=== PATIENT | female | born 1940 | race Caucasian/White ===

== ENCOUNTER 2020-03-24 15:38 | Inpatient (IN) ==
[2020-03-24] MEDS ORDERED: MoRPHine SULFATE 2 MG/ML CARP IV PRN (15:48)
[2020-03-24] MEDS ORDERED: MoRPHine SULFATE 4 MG/ML 1 ML CARP\\VIAL IV PRN ×2 (15:48→22:05)
--- NOTE | 2020-03-24 15:51 | Emergency Department Note ---
Impression & Plan Hip fracture, left, Fall, Hip pain ED Provider Note NAME: Lamin HAINES AGE: 80 SEX: F : 1940 ARRIVES VIA: Ambulance INFORMANT: Patient ED PROVIDER(S): Carlos Dietrich DO CHIEF COMPLAINT: Fall HPI: Patient is an 80-year-old female who presents ER following a mechanical fall. She was taking pictures walking backwards and slipped and fell onto her left hip. She did hit her head. She complains of no pain at this point. Pain is only present with movement of her left hip. Admits to severe pain with movement sharp stabbing in that left hip. Denies any headache or neck pain. No chest pain, cough or runny nose. No belly pain, nausea, vomiting or diarrhea. No dysuria urgency or frequency. No tingling or numbness in the extremity ROS: See above HPI for pertinent positives & negatives. A total of 10 systems reviewed and were otherwise negative. PAST MEDICAL HISTORY:See Below PAST SURGICAL HISTORY:See Below FAMILY HISTORY:See Below SOCIAL HISTORY:See Below HOME MEDICATIONS:See Below ALLERGIES:See Below VITALS:See Below PHYSICAL EXAMINATION: GENERAL: Sitting up in bed, alert, well appearing, well nourished, no distress, non-toxic HEAD: NC/AT EYE EXAM: normal conjunctiva. OROPHARYNX: mask in place NECK: supple, no nuchal rigidity, no adenopathy, non-tender LUNGS: Clear to auscultation. Normal chest wall mechanics HEART: no murmurs, S1 normal and S2 normal ABDOMEN: abdomen soft, non-tender, normo-active bowel sounds, no masses, no rebound or guarding. BACK: Back is symmetrical on inspection and there is no deformity, no midline tenderness, no CVA tenderness. SKIN: no rashes and no bruising UPPER EXTREMITIES: upper extremities are grossly normal. LOWER EXTREMITIES: No tenderness on palpation of the entire right lower extremity. Left lower extremity DP and PT 2 out of 4. Significant pain on palpation of left hip. No tenderness throughout mid femur tracking to the knee tib-fib down to the ankle or the foot. NEURO EXAM: Normal sensorium, cranial nerves II-XII grossly intact, normal speech, no gross weakness of arms, no gross weakness of legs. MEDICAL DECISION MAKING: Patient is an 80-year-old female who presents the ER following mechanical fall onto her left hip. IV was status post orders obtained. Labs show mild leukocytosis 13,000. No significant anemia. INR unremarkable. BMP with mild hypokalemia natremia. UA was unremarkable. Covid was negative. X-rays show left hip fracture. [facility] as she has follow-up with them before.. Discussed the hospitalist for further evaluation. Patient should be n.p.o. after midnight. Patient did become hypoxic after IV narcotics. Triage Nursing notes reviewed. Prior medical records reviewed Vital Signs: reviewed and remarkable for no significant abnormalities Differential diagnosis: ORTHOPEDIC INSTRUCTIONS: Fracture, subluxation, dislocation, contusion, ligamentous injury, neurovascular, compartment syndrome, rhabdomyolysis, as well as other pathologies. ER treatment provided: See below Diagnostics interpreted by me: ECG: Sinus rhythm rate of 78 Normal axis No PVCs QTC 456 Cardiac Monitoring: An order was placed for continuous cardiac monitoring. The monitor shows a rate of 84 with sinus rhythm. Laboratory studies: As stated above and show below. Imaging studies: X-ray showed left hip fracture CT head and cervical spine were negative Consultation(s): none ED COURSE: Procedures: none Critical Care: None Past Med/Surg History Social History Smoking Status: Former smoker Feels Safe at Home: Yes Allergies Allergies Allergy/AdvReac Type Severity Reaction Status Date / Time No Known Allergies Allergy Verified 05/20/02 19:40 N Allergy Unknown Uncoded 05/20/02 21:14 Home Meds Home Medications Medication Instructions Recorded Confirmed escitalopram oxalate 10 mg PO HS 03/24/20 03/24/20 timolol maleate 1 drp OPR BID 03/24/20 03/24/20 Previous Rx's Medication Instructions Recorded azelastine 137 mcg (0.1 %) nasal 1 spray INTRANASAL DAILY #90 ml 12/28/19 spray aerosol Results & Data (ED) Vital Signs Vital Signs - 24 hr 03/24/20 15:50 03/24/20 17:42 03/24/20 17:43 Temperature 36.8 C Temperature Source Oral Pulse Rate 78 Pulse Rate [Right Finger] 86 Pulse Rhythm [Right Finger] Respiratory Rate 20 17 Respiratory Effort / Characteristics Non-Labored Non-Labored Respiratory Depth Normal Normal Respiratory Pattern Blood Pressure 175/114 H Blood Pressure [Right Arm] 133/80 Blood Pressure Mean 134 Blood Pressure Mean [Right Arm] 97 Blood Pressure Position [Right Arm] Pulse Oximetry 96 89 L 90 Oxygen Delivery Method Room Air Room Air Nasal Cannula Oxygen Flow Rate 3 Sepsis Recent Fever Within 48 Hours No Sepsis New/Unexplained Change in Mental Status No Sepsis Action Taken by Nursing No Action Required Oxygen Flow Rate - Titration Pulse Oximetry Post Tiitration 03/24/20 19:30 03/24/20 19:59 03/24/20 21:09 Temperature Temperature Source Pulse Rate 85 Pulse Rate [Right Finger] 91 H Pulse Rhythm [Right Finger] Regular Respiratory Rate 18 18 Respiratory Effort / Characteristics Non-Labored Spontaneous Respiratory Depth Normal Respiratory Pattern Regular Blood Pressure 113/80 Blood Pressure [Right Arm] 141/100 H Blood Pressure Mean 91 Blood Pressure Mean [Right Arm] 113 Blood Pressure Position [Right Arm] Lying Pulse Oximetry 90 75 L 91 Oxygen Delivery Method Nasal Cannula Nasal Cannula Oxymask Oxymask Oxygen Flow Rate 3 3 10 Sepsis Recent Fever Within 48 Hours Sepsis New/Unexplained Change in Mental Status Sepsis Action Taken by Nursing Oxygen Flow Rate - Titration 10 Pulse Oximetry Post Tiitration 91 Laboratory Data Result diagrams: 03/24/20 15:52 03/24/20 15:52 Lab Results 03/24/20 03/24/20 03/24/20 Range/Units 15:52 15:52 15:52 WBC 13.16 H (4.8-10.8) K/uL RBC 4.09 L (4.2-5.4) M/uL Hgb 13.6 (12.0-16.0) g/dL Hct 40.8 (37-47) % MCV 99.8 (80-100) fL MCH 33.3 (25-34) pg MCHC 33.3 (32-36) g/dL RDW Std Deviation 48.8 H (36.4-46.3) fL RDW Coeff of Sienna 13.4 (11.5-14.5) % Plt Count 279 (130-400) K/uL MPV 10.7 H (7.4-10.4) fL Immature Gran % (Auto) 0.3 % Neut % (Auto) 67.3 % Lymph % (Auto) 21.7 % [place] % (Auto) 5.0 % Eos % (Auto) 5.3 % Baso % (Auto) 0.4 % Neut # (Auto) 8.86 H (1.4-6.5) K/uL Lymph # (Auto) 2.85 (1.2-3.4) K/uL [place] # (Auto) 0.66 H (0.11-0.59) K/uL Eos # (Auto) 0.70 H (0-0.5) K/uL Baso # (Auto) 0.05 (0-0.2) K/uL Immature Gran # (Auto) 0.04 H (0.00-0.02) K/uL PT 11.1 (9.0-12.0) Seconds INR 1.1 (0.9-1.1) APTT 26.0 (21.0-31.0) Seconds PTT Ratio 0.9 Sodium 135 L (136-145) mmol/L Potassium 3.8 (3.5-5.1) mmol/L Chloride 103 (98-107) mmol/L Carbon Dioxide 25 (21-32) mmol/L Anion Gap 7.0 (3-11) BUN 14 (7-18) mg/dl Creatinine 0.68 (0.6-1.2) mg/dl Est Cr Clr Drug Dosing 59.2 ml/min Est GFR ( Amer) 95.1 Est GFR (Non-Af Amer) 82.0 BUN/Creatinine Ratio 19.9 (10-20) Glucose 110 H (70-99) mg/dl Calcium 9.2 (8.5-10.1) mg/dl Urine Color Urine Appearance (Clear) Urine pH (4.5-7.5) Ur Specific [place] (1.000-1.030) Urine Protein (Negative) Urine Glucose (UA) (Negative) Urine Ketones (Negative) Urine Blood (Negative) Urine Nitrite (Negative) Urine Bilirubin (Negative) Urine Urobilinogen (Negative) Ur Leukocyte Esterase (Negative) Urine WBC (Auto) (0-5) /hpf Urine RBC (Auto) (0-4) /hpf U Hyaline Cast (Auto) (0-5) /lpf U Epithel Cells (Auto) (0-5) /lpf Urine Bacteria (Auto) (Negative) SARS-CoV-2 Ag (Rapid) (Negative) 03/24/20 03/24/20 Range/Units 17:27 19:46 WBC (4.8-10.8) K/uL RBC (4.2-5.4) M/uL Hgb (12.0-16.0) g/dL Hct (37-47) % MCV (80-100) fL MCH (25-34) pg MCHC (32-36) g/dL RDW Std Deviation (36.4-46.3) fL RDW Coeff of Sienna (11.5-14.5) % Plt Count (130-400) K/uL MPV (7.4-10.4) fL Immature Gran % (Auto) % Neut % (Auto) % Lymph % (Auto) % [place] % (Auto) % Eos % (Auto) % Baso % (Auto) % Neut # (Auto) (1.4-6.5) K/uL Lymph # (Auto) (1.2-3.4) K/uL [place] # (Auto) (0.11-0.59) K/uL Eos # (Auto) (0-0.5) K/uL Baso # (Auto) (0-0.2) K/uL Immature Gran # (Auto) (0.00-0.02) K/uL PT (9.0-12.0) Seconds INR (0.9-1.1) APTT (21.0-31.0) Seconds PTT Ratio Sodium (136-145) mmol/L Potassium (3.5-5.1) mmol/L Chloride (98-107) mmol/L Carbon Dioxide (21-32) mmol/L Anion Gap (3-11) BUN (7-18) mg/dl Creatinine (0.6-1.2) mg/dl Est Cr Clr Drug Dosing ml/min Est GFR ( Amer) Est GFR (Non-Af Amer) BUN/Creatinine Ratio (10-20) Glucose (70-99) mg/dl Calcium (8.5-10.1) mg/dl Urine Color Yellow Urine Appearance Clear (Clear) Urine pH 5.5 (4.5-7.5) Ur Specific [place] 1.021 (1.000-1.030) Urine Protein 1+ H (Negative) Urine Glucose (UA) Negative (Negative) Urine Ketones 3+ H (Negative) Urine Blood Negative (Negative) Urine Nitrite Negative (Negative) Urine Bilirubin Negative (Negative) Urine Urobilinogen Negative (Negative) Ur Leukocyte Esterase Negative (Negative) Urine WBC (Auto) 0 (0-5) /hpf Urine RBC (Auto) 0-4 (0-4) /hpf U Hyaline Cast (Auto) 1-5 (0-5) /lpf U Epithel Cells (Auto) 10-20 H (0-5) /lpf Urine Bacteria (Auto) Negative (Negative) SARS-CoV-2 Ag (Rapid) Negative (Negative) Administered Medications Morphine Sulfate (Morphine Sulfate 4 Mg/Ml 1 Ml Carp\Vial) 4 mg IV Q1H PRN PRN Reason: Severe Pain (Rating 7,8,9,10) Stop: 04/07/20 15:47 Last Admin: 03/24/20 17:03 Dose: 4 mg Documented by: [id number] Discharge Plan Visit Data Chief Complaint: Hip Pain Stated Complaint: FALL, L HIP PAIN ED Provider: Carlos Dietrich Discharge Problem: Hip fracture, left, Fall, Hip pain Discharge Instructions Interventions: ED Discharge Assessment Last Done: 03/24/20 21:06 Forms Stand Alone Forms: [facility] [employer] Prescriptions Prescriptions: No Action azelastine 137 mcg (0.1 %) aerosol,spray 1 spray intranasal DAILY Qty: 90 RF: 0 timolol maleate 0.5 % drops 1 drp OPR BID RF: 0 escitalopram oxalate 10 mg tablet 10 mg PO HS RF: 0 Referrals Referrals: Amalia Todd MD [Primary Care Provider] - Discharge Problem: Hip fracture, left Qualifiers: Encounter type: initial encounter Fracture type: closed Qualified Code(s): S72.002A - Fracture of unspecified part of neck of left femur, initial encounter for closed fracture Fall Qualifiers: Encounter type: initial encounter Qualified Code(s): W19.XXXA - Unspecified fall, initial encounter
[2020-03-24 15:59] LABS: Basophils # (auto) 0.05 K/uL (0-0.2); Basophils % (auto) 0.4 %; Eosinophils % (auto) 5.3 %; Hematocrit (blood only) 40.8 % (37-47); Hemoglobin 13.6 g/dL (12.0-16.0); Immature Granulocytes # (auto) 0.04 K/uL (0.00-0.02); Immature Granulocytes % (auto) 0.3 %; Lymphocytes # (auto) 2.85 K/uL (1.2-3.4); Lymphocytes % (auto) 21.7 %; Mean Corpuscular Hemoglobin 33.3 pg (25-34); Mean Corpuscular Hgb Conc 33.3 g/dL (32-36); Mean Corpuscular Volume 99.8 fL (80-100); Mean Platelet Volume 10.7 fL (7.4-10.4); Monocytes # (auto) 0.66 K/uL (0.11-0.59); Neutrophils # (auto) 8.86 K/uL (1.4-6.5); Neutrophils % (auto) 67.3 %; Platelet Count 279 K/uL (130-400); RDW Coefficient of Variation 13.4 % (11.5-14.5); RDW Standard Deviation 48.8 fL (36.4-46.3); Red Blood Count 4.09 M/uL (4.2-5.4); White Blood Count 13.16 K/uL (4.8-10.8)
[2020-03-24 16:16] LABS: INR 1.1 (0.9-1.1); Partial Thromboplastin Ratio 0.9; Prothrombin Time 11.1 Seconds (9.0-12.0)
--- NOTE | 2020-03-24 16:19 | XRay Report ---
XR hip LT 2V w pelvis CLINICAL HISTORY: Left hip pain status post trauma COMPARISON: None. DISCUSSION: There is a displaced subcapital left hip fracture. There is no dislocation. There is a gretchen mbar scoliosis. Degenerative changes are present within the spine. IMPRESSION: Acute subcapital left hip fracture. ACT 112: Negative or not required by law. Electronically signed by: Sam Valdes M.D. 03/24/2020 4:18 PM
[2020-03-24 16:31] LABS: BUN Creatinine Ratio 19.9 (10-20); Calcium 9.2 mg/dl (8.5-10.1); Creatinine Clr Calc Pharmacy 59.2 ml/min; Est GFR (African American) 95.1; Potassium 3.8 mmol/L (3.5-5.1)
--- NOTE | 2020-03-24 16:35 | XRay Report ---
XR chest 1V portable CLINICAL HISTORY: Hip fracture. Preoperative chest COMPARISON STUDY: No previous studies for comparison. FINDINGS: The heart is mildly enlarged. There is mild elevation of interstitium. This is age indeterm inate. This could represent mild pulmonary vascular congestion, chronic interstitial lung disease, or interstitial inflammatory process. Clinical and radiographic follow-up is recommended. There are no significant pleural effusions. No pneumothorax is visualized on this supine study.[ IMPRESSION: 1. Mild age indeterminate interstitial thickening. ACT 112: Negative or not required by law. Electronically signed by: Sam Valdes M.D. 03/24/2020 4:34 PM
--- NOTE | 2020-03-24 17:29 | CT Scan Report ---
CT head/brain wo con CLINICAL HISTORY: Head pain status post trauma COMPARISON STUDY: No previous studies for comparison. TECHNIQUE: Axial CT of the brain is performed from the vertex to the skull base. IV contrast was not administered for this examination. A dose lowering technique was utilized adhering to the principles of ALARA. CT DOSE: FINDINGS: No intra or extra-axial mass lesions are visualized. There is no CT evidence of acute cortical infarc tion. There is no evidence of midline shift. There is no acute hemorrhage. No calvarial fractures ar e visualized. There are patchy white matter hypodensities likely on a small vessel basis. There is no evidence of pathologic ventricular dilatation. There is left ethmoid sinus mucosal thickening. IMPRESSION: No acute intracranial findings ACT 112: Negative or not required by law. Electronically signed by: Sam Valdes M.D. 03/24/2020 5:28 PM
--- NOTE | 2020-03-24 17:31 | CT Scan Report ---
CT OF THE CERVICAL SPINE CLINICAL HISTORY: Neck pain status post trauma COMPARISON STUDY: No previous studies for comparison. CT DOSE: 936.18 mGy.cm TECHNIQUE: CT scan of the cervical spine was performed from the skull base to the thoracic inlet. Tequila ges are reviewed in the axial, sagittal, and coronal planes. IV contrast was not administered for thi s examination. A dose lowering technique was utilized adhering to the principles of ALARA. FINDINGS: The visualized portions of the lung apices reveal no evidence of pneumothorax. There is mild nonspeci fic left piriform sinus asymmetry. There is mild apical septal edema The prevertebral soft tissues are normal. No fractures or subluxations are visualized. There are multilevel degenerative changes IMPRESSION: No evidence of acute fracture or traumatic subluxation. ACT 112: Negative or not required by law. Electronically signed by: Sam Valdes M.D. 03/24/2020 5:30 PM
--- NOTE | 2020-03-24 18:53 | History & Physical Report ---
Date of Service March 24, 2020 Assessment & Plan (1) Hip fracture, left: Patient 80-year-old female with a past medical history of glaucoma, anxiety/depression, allergic rhinitis who presents today for evaluation of hip pain status post mechanical fall. #Acute subcapital left hip fracture secondary to mechanical fall in the setting of a patient with poor balance Patient with HPI as described above, presenting status post mechanical fall which imaging has demonstrated resulted in acute subcapital left hip fracture. The patient reports a history of having poor balance, this is not neurologically mediated, just is occurred with age. The patient will be admitted for orthopedic consultation, pain control, and further management of her fracture. -Consult orthopedics -Pain control with morphine -PT OT consulted -N.p.o. after midnight -Neurovascular checks left lower extremity -Consulted case management for discharge planning #Hypoxia On presentation the emergency department the patient was hypoxic to the low 90s/upper 80s requiring oxygen to maintain saturations of 92%. This is new for her, she does not use oxygen at home, she has no history of using oxygen, she reports being able to walk on a treadmill and walk around the house without significant issues. I suspect that her desaturations likely secondary to narcotic medication given for analgesia. For now monitor while hospitalized and provide as needed O2 -Monitor for improvement -As needed O2 -Trend daily CBC #Glaucoma Well-controlled continue timolol #Depression Well-controlled continue escitalopram FENa: Normal diet, n.p.o. after midnight Code Status: Full code DVT PPX: Contraindicated as the patient will likely require surgery PT/OT: Ordered Dispo: Emmanuel Kelley MD PGY 2, FCM This chart was completed utilizing [employer] voice recognition software. Grammatical errors, random word insertions, pronoun errors, and in complete sentences are an occasional consequence of the system. Any questions or concerns about the content, text, or information contained within the body of this dictation should be addressed directly to the physician for clarification. (2) Hypoxia: (3) Glaucoma: (4) Depression: (5) Fall: (6) Poor balance: History of Present Illness Patient 80-year-old female with a past medical history of glaucoma, anxiety/depression, allergic rhinitis who presents today for evaluation of hip pain status post mechanical fall. Patient reports being in her usual state of health prior to the injury, she denies any constitutional symptoms including fever, chills, nausea, vomiting, diarrhea, chest pressure, chest pain, shortness of breath, difficulty urinating, difficulty having bowel movements. She had gone outside to take pictures of the snow and show her children how she had been able to park the car in the garage. While lining up the picture she stepped backwards and fell hitting her left hip and her head. She screamed out for her who did not hear her, she was able to reach for her cell phone and called EMS. On presentation to the emergency department routine laboratories were obtained, CBC demonstrating a white count of 13.16 with a neutrophil predominance, INR within normal limits, Chem-7 demonstrating a sodium of 135 and a glucose of 110 otherwise within normal limits, rapid Covid test was negative, urine pending.Cervical spine CT was normal with the exception of degenerative changes, head CT was negative with the exception of chronic degenerative changes, chest x-ray demonstrated mild age indeterminate interstitial thickening. Pelvis x-ray demonstrated acute subcapital left hip fracture. The primary team was contacted for admission secondary to hip fracture, during my interview with the patient she related in HPI as described above. All questions were answered, no acute concerns. Primary Care Provider: Amalia Todd MD Allergies Allergy/AdvReac Type Severity Reaction Status Date / Time No Known Allergies Allergy Verified 05/20/02 19:40 N Allergy Unknown Uncoded 05/20/02 21:14 Home Medications Medication Instructions Recorded Confirmed Type azelastine 137 mcg (0.1 %) nasal 1 spray INTRANASAL DAILY #90 ml 12/28/19 03/24/20 Rx spray aerosol escitalopram oxalate 10 mg PO HS 03/24/20 03/24/20 History timolol maleate 1 drp OPR BID 03/24/20 03/24/20 History Past Med/Surg History Social History Smoking Status: Never smoker Hx Alcohol Use: Yes Alcohol type: wine Hx Substance Use: No Preferred Language: Estonian Communication Ability: Effective Order Detailer Required: No Beliefs That Will Affect Care: None Current Living Situation: Spouse Current Living Situation Comment: [facility] Other Information That Helps Us Care for You: No Feels Safe at Home: Yes Safety Concerns: Feels Safe At This Time Assistive Devices: Cane, Denture - Upper, Denture - Lower and Glasses Review of Systems Review of Systems: All systems reviewed & are unremarkable except as noted in HPI & below Physical Exam Physical Exam: General: In no acute distress HEENT: Normocephalic atraumatic Neck: Normal to visual inspection, trachea midline Cardiac: Regular rate and rhythm I did not appreciate significant murmurs rubs or gallops, normal S1, normal S2, negative pedal edema, negative calf tenderness Respiratory: Clear to auscultation bilaterally with symmetrical chest expansion no increased work of breathing I did not appreciate any significant wheezes, rales, rhonchi GI: Soft, nontender, nondistended, bowel sounds present in all 4 quadrants MSK: Moves all extremities, neurovascular sensation intact on the left side, endorses pain in her left quadriceps muscles Skin: Some bruising and ecchymosis around the injury site Neuro: Alert and oriented x4 Psych: Calm and cooperative Results & Data Results & Data ([facility]) Vital Signs (Past 12 Hours) Vital Signs Temp Pulse Pulse Resp BP BP Pulse Ox 03/24/20 17:43 90 03/24/20 17:42 86 17 133/80 89 L 03/24/20 15:50 36.8 C 78 20 175/114 H 96 Laboratory Results 03/24/20 03/24/20 03/24/20 Range/Units 17:27 15:52 15:52 WBC (4.8-10.8) K/uL RBC (4.2-5.4) M/uL Hgb (12.0-16.0) g/dL Hct (37-47) % MCV (80-100) fL MCH (25-34) pg MCHC (32-36) g/dL RDW Std Deviation (36.4-46.3) fL RDW Coeff of Sienna (11.5-14.5) % Plt Count (130-400) K/uL MPV (7.4-10.4) fL Immature Gran % (Auto) % Neut % (Auto) % Lymph % (Auto) % [place] % (Auto) % Eos % (Auto) % Baso % (Auto) % Neut # (Auto) (1.4-6.5) K/uL Lymph # (Auto) (1.2-3.4) K/uL [place] # (Auto) (0.11-0.59) K/uL Eos # (Auto) (0-0.5) K/uL Baso # (Auto) (0-0.2) K/uL Immature Gran # (Auto) (0.00-0.02) K/uL PT 11.1 (9.0-12.0) Seconds INR 1.1 (0.9-1.1) APTT 26.0 (21.0-31.0) Seconds PTT Ratio 0.9 Sodium 135 L (136-145) mmol/L Potassium 3.8 (3.5-5.1) mmol/L Chloride 103 (98-107) mmol/L Carbon Dioxide 25 (21-32) mmol/L Anion Gap 7.0 (3-11) BUN 14 (7-18) mg/dl Creatinine 0.68 (0.6-1.2) mg/dl Est Cr Clr Drug Dosing 59.2 ml/min Est GFR ( Amer) 95.1 Est GFR (Non-Af Amer) 82.0 BUN/Creatinine Ratio 19.9 (10-20) Glucose 110 H (70-99) mg/dl Calcium 9.2 (8.5-10.1) mg/dl SARS-CoV-2 Ag (Rapid) Negative (Negative) 03/24/20 Range/Units 15:52 WBC 13.16 H (4.8-10.8) K/uL RBC 4.09 L (4.2-5.4) M/uL Hgb 13.6 (12.0-16.0) g/dL Hct 40.8 (37-47) % MCV 99.8 (80-100) fL MCH 33.3 (25-34) pg MCHC 33.3 (32-36) g/dL RDW Std Deviation 48.8 H (36.4-46.3) fL RDW Coeff of [place]ienna 13.4 (11.5-14.5) % Plt Count 279 (130-400) K/uL MPV 10.7 H (7.4-10.4) fL Immature Gran % (Auto) 0.3 % Neut % (Auto) 67.3 % Lymph % (Auto) 21.7 % [place] % (Auto) 5.0 % Eos % (Auto) 5.3 % Baso % (Auto) 0.4 % Neut # (Auto) 8.86 H (1.4-6.5) K/uL Lymph # (Auto) 2.85 (1.2-3.4) K/uL [place] # (Auto) 0.66 H (0.11-0.59) K/uL Eos # (Auto) 0.70 H (0-0.5) K/uL Baso # (Auto) 0.05 (0-0.2) K/uL Immature Gran # (Auto) 0.04 H (0.00-0.02) K/uL PT (9.0-12.0) Seconds INR (0.9-1.1) APTT (21.0-31.0) Seconds PTT Ratio Sodium (136-145) mmol/L Potassium (3.5-5.1) mmol/L Chloride (98-107) mmol/L Carbon Dioxide (21-32) mmol/L Anion Gap (3-11) BUN (7-18) mg/dl Creatinine (0.6-1.2) mg/dl Est Cr Clr Drug Dosing ml/min Est GFR ( Amer) Est GFR (Non-Af Amer) BUN/Creatinine Ratio (10-20) Glucose (70-99) mg/dl Calcium (8.5-10.1) mg/dl SARS-CoV-2 Ag (Rapid) (Negative) Medications Administered Current Inpatient Medications Morphine Sulfate (Morphine Sulfate 2 Mg/Ml Carp) 2 mg IV Q1H PRN PRN Reason: Moderate Pain (Rating 3,4,5,6) Stop: 04/07/20 15:47 Morphine Sulfate (Morphine Sulfate 4 Mg/Ml 1 Ml Carp\Vial) 4 mg IV Q1H PRN PRN Reason: Severe Pain (Rating 7,8,9,10) Stop: 04/07/20 15:47 Last Admin: 03/24/20 17:03 Dose: 4 mg Documented by: Code Status & VTE Plan Code Status Full code VTE Prophylaxis Plan VTE Prophylaxis will be ordered: No Reason for no VTE drug order: Contraindicated Supervising Physician Co-Signing Physician Notes I personally saw and examined the patient. I verified all carlton points and agree with Resident Physician Pola Kelley with the following exceptions and/or additions: 80 yo female with mechanical fall onto her left side. [place] well prior to this. O/E NV intact distal to fracture, no petechial rash, Chest CTAB, HS 1+2, no murmurs, Abdo SNT Left hip fracture - ortho consult (patient requested Dr Rivero), pain and nausea management as above, NPO after midnight. Vit D level in AM. Follow up DEXA scan as outpatient. revised cardiac risk index 0. Patient to be reviewed in AM prior to medical clearance. Hypoxia without respiratory failure - recommend patient is medically reviewed prior to surgery tomorrow to assess risk of surgery. Unclear reason for significant hypoxia on admission. CXR unremarkable. Chest pain free and no dyspnea. Concerning for fat embolism but presentation appears relatively quick for this and no definitive imaging or treatments therefore will observe overnight. Resident Activity Tracking Resident Involvement: Resident Care Provided Care Provided: Adult Hospital Medicine
[2020-03-24] MEDS ORDERED: ACETAMINOPHEN 325 MG TAB PO PRN (19:07)
[2020-03-24] MEDS ORDERED: ONDANSETRON INJ 2 MG/ML 2 ML VIAL IV PRN (19:07)
[2020-03-24] MEDS ORDERED: MELATONIN 3 MG TAB PO PRN (19:12)
[2020-03-24 20:21] LABS: Appearance Urine Clear (Clear); Bacteria Urine Automated Negative (Negative); Bilirubin Urine Negative (Negative); Blood Urine Negative (Negative); Color Urine Yellow; Glucose Urine UA Negative (Negative); Ketones Urine 3+ (Negative); Leukocyte Esterase Urine Negative (Negative); Nitrite Urine Negative (Negative); Protein Urine 1+ (Negative); RBC Urine Automated 0-4 /hpf (0-4); Specific Gravity Urine 1.021 (1.000-1.030); Urobilinogen Urine Negative (Negative); WBC Urine Automated 0 /hpf (0-5); pH Urine 5.5 (4.5-7.5)
[2020-03-24] MEDS: LACTATED RINGER'S 1,000 ML IV SCH (23:05)
--- NOTE | 2020-03-24 23:23 | Billing Data ---
Date of Service March 24, 2020 Coding Level of Care Code 07242 Initial Inpt Care Lvl 2
[2020-03-24] MEDS: POLYETHYLENE (MIRALAX) 17 GM PACK PO SCH (23:45)
[2020-03-24] MEDS: ESCITALOPRAM OXALATE 10 MG TAB PO SCH (23:46)
[2020-03-25] MEDS: AZELASTINE~ORDER AWAITING ACTION SCH ×2 (00:31→16:26)
[2020-03-25] MEDS: MoRPHine SULFATE 2 MG/ML CARP IV PRN ×3 (00:40→16:24)
--- NOTE | 2020-03-25 05:42 | Orthopedic Consultation ---
Date of Consultation March 25, 2020 Assessment & Plan (1) Hip fracture, left: X-rays demonstrate Garden 4 left femoral neck fracture. Given the nature of the injury amount of displacement I recommendation is for a left hip bipolar hemiarthroplasty. The risks, benefits, alternatives including but but not limited to pain, stiffness, infection, DVT, PE, , damage to blood vessels, damage to nerves, dislocation, need for revision surgery were discussed with the patient and she wishes to proceed. She is not on any anticoagulation. Her Covid test is negative. We will plan for surgery later this morning. Present on Admission?: Yes History of Present Illness Reason for Consultation: Left femoral neck fracture Attending Physician: Renato Dumont MD History of Present Illness Patient is a 80-year-old female is outside. She was backing out trying to take picture slipped and fell onto the left hip. She immediate pain and inability to bear weight. She denies previous injury to the hip. Denies any neurologic symptoms. Denies any radicular pain. Allergies Allergy/AdvReac Type Severity Reaction Status Date / Time No Known Allergies Allergy Verified 05/20/02 19:40 N Allergy Unknown Uncoded 05/20/02 21:14 Home Medications Medication Instructions Recorded Confirmed Type azelastine 137 mcg (0.1 %) nasal 1 spray INTRANASAL DAILY #90 ml 12/28/19 03/24/20 Rx spray aerosol escitalopram oxalate 10 mg PO HS 03/24/20 03/24/20 History timolol maleate 1 drp OPR BID 03/24/20 03/24/20 History Patient History Social History Smoking Status: Never smoker Hx Alcohol Use: Yes Alcohol type: wine Hx Substance Use: No Preferred Language: Bengali Communication Ability: Effective Plate Shop Helper Required: No Beliefs That Will Affect Care: None Current Living Situation: Spouse Current Living Situation Comment: [facility] Feels Safe at Home: Yes Assistive Devices: Cane, Denture - Upper, Denture - Lower and Glasses Physical Exam Constitutional: WD/WN, vitals as above Neck: normal visual inspection Respiratory: normal respiratory effort Cardiovascular: Rate/Rhythm: regular rate Musculoskeletal: Left lower extremity: 2+ dorsalis pedis pulse. Light touch s ensation and motor function is intact distally. She has pain with internal and external rotation of the leg that she locates to the hip. Limb is shortened and internally rotated. Results & Data ([facility]) Vital Signs (Past 12 Hours) Vital Signs Temp Pulse Pulse Resp BP BP Pulse Ox 03/24/20 23:22 36.6 C 95 H 18 134/87 92 03/24/20 22:11 37.5 C 98 H 14 139/91 94 03/24/20 21:09 85 18 113/80 91 03/24/20 19:59 75 L 03/24/20 19:30 91 H 18 141/100 H 90 03/24/20 17:43 90 03/24/20 17:42 86 17 133/80 89 L (1) Hip fracture, left Encounter type: initial encounter Fracture type: closed Qualified Code(s): S72.002A - Fracture of unspecified part of neck of left femur, initial encounter for closed fracture
[2020-03-25 06:05] LABS: Basophils # (auto) 0.03 K/uL (0-0.2); Basophils % (auto) 0.3 %; Eosinophils # (auto) 0.03 K/uL (0-0.5); Eosinophils % (auto) 0.3 %; Hematocrit (blood only) 40.7 % (37-47); Hemoglobin 13.6 g/dL (12.0-16.0); Immature Granulocytes # (auto) 0.02 K/uL (0.00-0.02); Immature Granulocytes % (auto) 0.2 %; Lymphocytes % (auto) 16.5 %; Mean Corpuscular Hgb Conc 33.4 g/dL (32-36); Mean Corpuscular Volume 98.8 fL (80-100); Mean Platelet Volume 10.8 fL (7.4-10.4); Monocytes # (auto) 0.74 K/uL (0.11-0.59); Monocytes % (auto) 7.6 %; Neutrophils # (auto) 7.28 K/uL (1.4-6.5); Neutrophils % (auto) 75.1 %; Platelet Count 275 K/uL (130-400); RDW Coefficient of Variation 13.4 % (11.5-14.5); RDW Standard Deviation 48.4 fL (36.4-46.3); Red Blood Count 4.12 M/uL (4.2-5.4)
[2020-03-25 06:31] LABS: Albumin Level 3.1 gm/dl (3.4-5.0); BUN Creatinine Ratio 21.1 (10-20); Calcium 8.2 mg/dl (8.5-10.1); Creatinine Clr Calc Pharmacy 72.2 ml/min; Potassium 3.9 mmol/L (3.5-5.1)
[2020-03-25 06:34] LABS: Albumin Globulin Ratio 0.9 (0.9-2); Globulin 3.6 gm/dl (2.5-4.0); Total Protein 6.7 gm/dl (6.4-8.2)
[2020-03-25] MEDS: POLYETHYLENE (MIRALAX) 17 GM PACK PO SCH ×2 (07:29→20:53)
[2020-03-25] MEDS: LACTATED RINGER'S 1,000 ML IV SCH (07:56)
[2020-03-25] MEDS: TIMOLOL MALEATE 0.5% OP SOLN 5 ML BTL OPR SCH ×2 (08:08→20:52)
[2020-03-25] MEDS ORDERED: fentaNYL citrate 100 MCG/2 ML VIAL ONE (08:35)
[2020-03-25] MEDS ORDERED: ONDANSETRON INJ 2 MG/ML 2 ML VIAL ONE (08:35)
[2020-03-25] MEDS ORDERED: LIDOCAINE HCL 2% 2 ML VIAL/AMP(20MG/ML) INFIL ONE ×2 (08:35→10:17)
[2020-03-25] MEDS ORDERED: PROPOFOL IV EMULSION 10 MG/ML 20 ML VIAL IV ONE ×2 (08:35→11:19)
[2020-03-25] MEDS ORDERED: BUPIVACAINE 0.5 % 5 MG/1 ML PF 10ML VIAL ONE (09:14)
--- NOTE | 2020-03-25 09:14 | History & Physical Bridge Note ---
Date of Service March 25, 2020 History & Physical Bridge Note I have examined the patient, reviewed the History & Physical and in the interval since the performance of the History & Physical I have noted the following changes of clinical significance: no changes noted
--- NOTE | 2020-03-25 09:21 | Anesthesiology Consultation ---
Date of Service March 25, 2020 Assessment & Plan ASA ASA3 Proposed Anesthesia Anesthesia Type: General and MAC Spinal Risk / Benefits Reviewed With: PT / POA / Parent / Guardian, Accepts Plan and Informed Consent Obtained History Surgery Operation Date: 03/25/20 09:00 Proposed Procedures p Bipolar Hip Prosthesis-Left - Scottie Rivero MD Height/Weight Height: 5 ft 2 in Weight: 67.4 kg Allergies Allergy/AdvReac Type Severity Reaction Status Date / Time No Known Allergies Allergy Verified 05/20/02 19:40 N Allergy Unknown Uncoded 05/20/02 21:14 Medications Home Medications Medication Instructions Recorded Confirmed Last Taken azelastine 137 mcg (0.1 %) nasal 1 spray INTRANASAL DAILY #90 ml 12/28/19 1 05/25/19 Unknown spray aerosol escitalopram oxalate 10 mg PO HS 03/24/20 03/24/20 03/23/20 timolol maleate 1 drp OPR BID 03/24/20 03/24/20 03/24/20 Active Medications Generic Name Dose Route Start Last Admin Trade Name Freq PRN Reason Stop Dose Admin Escitalopram Oxalate 10 mg 03/24/20 22:05 03/24/20 23:46 Escitalopram Oxalate 10 Mg Tab PO 04/23/20 22:04 10 mg HS GADIEL Administration Lactated Ringer's 1,000 mls @ 100 mls/hr 03/24/20 23:59 03/25/20 07:56 Lr IV 03/25/20 11:58 100 mls/hr .Q10H GADIEL Administration Miscellaneous 1 ea 03/25/20 08:00 03/25/20 00:31 Azelastine~Order Awaiting Action N/A 04/24/20 07:59 Not Given QS GADIEL Morphine Sulfate 2 mg 03/24/20 22:05 03/25/20 07:34 Morphine Sulfate 2 Mg/Ml Carp IV 04/07/20 22:04 2 mg Q4H PRN Administration Pain (1,2,3,4,5) & Pre PT Polyethylene Glycol 17 gm 03/24/20 22:15 03/25/20 07:29 Polyethylene (Miralax) 17 Gm Pack PO 04/23/20 22:14 Not Given BID GADIEL Timolol Maleate 1 drops 03/25/20 09:00 03/25/20 08:08 Timolol Maleate 0.5% Op Soln 5 Ml Btl OPR 04/24/20 08:59 1 drops BID GADIEL Administration NPO Date Last Intake of Fluids: 03/24/20 Time Last Intake of Fluids: 22:00 Date Last Intake of Solids: 03/24/20 Time Last Intake of Solids: 14:00 Exercise / Class Metabolic Activity II 4-5 Yardwork/Stairs/Walk up hill Past Anesthesia History No Hx of Anesthesia Complications and No Family Hx of Anesthesia Complications History of PONV No Hx of PONV and No Hx of Motion Sickness Social History Smoking Status: Never smoker Hx Alcohol Use: Yes Alcohol type: wine alcohol intake frequency: 0-2 drinks per day Hx Substance Use: No Review of Systems denies fever/cough/ colds/ chest pain/ SOB/ DOROTHY denies DOROTHY Physical Exam Vital Signs Last Vital Signs Temp 37.0 C 03/25/20 07:42 Pulse 96 H 03/25/20 07:42 Resp 18 03/24/20 23:22 BP 108/73 03/25/20 07:42 Pulse Ox 91 03/25/20 07:42 ENMT Mouth: no TMJ abnormality and no dentition abnormality Thyromental Distance: > or= 3.5 Finger Breadths Mallampati Class: II Neck neck extension not limited Respiratory normal respiratory effort; no respiratory distress Auscultation: lungs clear to auscultation bilaterally Cardiovascular Rate/Rhythm: regular rate and regular rhythm Neurologic moves all extremities Psychiatric Orientation: alert and oriented x 3 Testing Laboratory Results 03/25/20 05:40 03/25/20 05:40 PT 11.1 Seconds (9.0-12.0) 03/24/20 15:52 INR 1.1 (0.9-1.1) 03/24/20 15:52 APTT 26.0 Seconds (21.0-31.0) 03/24/20 15:52 Urine Color Yellow 03/24/20 19:46 Urine Appearance Clear (Clear) 03/24/20 19:46 Urine pH 5.5 (4.5-7.5) 03/24/20 19:46 Ur Specific [place] 1.021 (1.000-1.030) 03/24/20 19:46 Urine Protein 1+ (Negative) H 03/24/20 19:46 Urine Glucose (UA) Negative (Negative) 03/24/20 19:46 Urine Ketones 3+ (Negative) H 03/24/20 19:46 Urine Nitrite Negative (Negative) 03/24/20 19:46 Ur Leukocyte Esterase Negative (Negative) 03/24/20 19:46 Urine WBC (Auto) 0 /hpf (0-5) 03/24/20 19:46 Urine RBC (Auto) 0-4 /hpf (0-4) 03/24/20 19:46 U Hyaline Cast (Auto) 1-5 /lpf (0-5) 03/24/20 19:46 U Epithel Cells (Auto) 10-20 /lpf (0-5) H 03/24/20 19:46 Urine Bacteria (Auto) Negative (Negative) 03/24/20 19:46
[2020-03-25] MEDS ORDERED: ceFAZolin 2,000 MG/15 ML IV PUSH IV ONE (09:23)
[2020-03-25] MEDS ORDERED: BACITRACIN INJ 50,000 UNIT VIAL ONE (10:28)
[2020-03-25] MEDS ORDERED: PHENYLEPHRINE HCL 10 MG/ML VIAL ONE (10:36)
--- NOTE | 2020-03-25 10:52 | Electrocardiogram Report ---
Test Reason : Blood Pressure : / mmHG Vent. Rate : 078 BPM Atrial Rate : 078 BPM P-R Int : 178 ms QRS Dur : 082 ms QT Int : 400 ms P-R-T Axes : 058 058 049 degrees QTc Int : 456 ms Poor data quality, interpretation may be adversely affected Normal sinus rhythm Possible Left atrial enlargement Abnormal ECG Confirmed by Quentin Stevens ([id number]) on 03/25/2020 10:52:12 AM Referred By: REFERRED SELF Confirmed By:Gage Stevens
--- NOTE | 2020-03-25 11:57 | Operative Report ---
Post Operative Report Pre & Post Diagnosis Operation Date: 03/25/20 09:00 Pre-Op Diagnosis: left hip fracture Post-Op Diagnosis: left hip fracture I identified the patient and participated in the time-out.: Yes Procedure Operation Date: 03/25/20 09:00 Actual Procedures p Bipolar Hip Prosthesis-Left(Left) - Scottie Rivero MD Surgeon Scottie Rivero MD Microfiche Duplicator Kemi Kramer PA-C Estimated Blood Loss 200 Findings Consistent with Post-Op Diagnosis Specimens Femoral head Drains None Anesthesia Type Spinal MAC Complications none None Disposition Accompanied Patient To Recovery: No Disposition: Recovery Room Indications The patient is an 80-year-old female who sustained a fall on her driveway slipping on the ice. She landed on left hip. She sustained a Garden 4 left femoral neck fracture. Given the nature of injury amount of displacement I recommended a left hip bipolar hemiarthroplasty Description of Procedure Risks benefits and alternatives of surgery including but not limited to infection, DVT, pain, stiffness, need for surgery, damage to blood vessels, damage to nerves or risks of anesthesia were discussed with the patient and they wished to proceed. The patient was identified and the laterality was confirmed and marked. They received a preoperative antibiotic as well as a spinal anesthetic. The patient was transferred the lateral decubitus position. An axillary roll was placed. All pressure points were well-padded. The hip was prepped and draped in the usual standard manner with ChloraPrep. I made a standard lateral incision over the greater trochanter. I sharply incised the skin then utilized Bovie electrocautery to achieve hemostasis. I in cised the iliotibial band fascia. I then identified the gluteus medius tendon and elevated the anterior one third. This was tagged with an Ethibond suture for later repair. I then dissected down over the anterior face of the femoral neck and identified the capsule. I incised through the capsule and tagged both sides of the capsule with Ethibond suture for later repair. I then marked the femoral neck to establish version ammeter revision femoral neck cut proximal to the femoral neck fracture. The femoral head was then removed with a combination of hip skid and pointed tenaculum. The kaibab femoral head was sized on the back table. I then began femoral preparation with a box punch. Then entered with a femoral canal finder. I then sequentially broached up to the appropriate size. Once I was satisfied with the sizing broach I trialed off of the broach. I determined appropriate neck length for yarsanism of limb lengths and stability of the hip. All the trial components were then removed. The wound was thoroughly irrigated. I then applied to my definitive components. Definitive components were Stiven Accolade II: Stem size: 2 Neck offset: +0 Bipolar component outer diameter: 43 The hip was then reduced. Again confirmed that we had good yarsanism of leg lengths and good stability to the hip. The wound was again thoroughly irrigated. The capsule was closed with interrupted #2 FiberWire suture. The gluteus medius was closed with a combination of cytocide soft tissue stitches as well as through drill tunnels. The remaining fascia was then closed with interrupted #1 Vicryl suture. Subcutaneous tissues closed with interrupted 2-0 Vicryl suture. The skin was closed with wendy. A sterile dressing was applied. All needle and sponge counts were correct at the end of the procedure patient was transferred to the PACU in stable condition without apparent complication. The PA-C was necessary for assistance with procedure for assistance in positioning, prepping, draping, retraction and closure. I attest to the content of the Intraoperative Record and any orders documented therein. Any exceptions are noted below.
[2020-03-25] MEDS ORDERED: diphenhydrAMINE 50 MG/ML VIAL IV PRN (12:31)
[2020-03-25] MEDS ORDERED: bisacodyL 10 MG SUPP PR PRN (12:31)
[2020-03-25] MEDS ORDERED: METOCLOPRAMIDE HCL INJ 5 MG/ML 2 ML VIAL IV PRN (12:31)
[2020-03-25] MEDS ORDERED: MAGNESIUM HYDROXIDE SUSP 30 ML UDC PO PRN (12:31)
[2020-03-25] MEDS ORDERED: ONDANSETRON INJ 2 MG/ML 2 ML VIAL IV PRN (12:31)
[2020-03-25] MEDS ORDERED: oxyCODONE HCL IR 5 MG TAB (IMMEDIATE RELEASE) PO PRN (12:31)
[2020-03-25] MEDS ORDERED: NALOXONE HCL 0.4 MG/1 ML VIAL/CARP IV PRN (12:31)
[2020-03-25] MEDS ORDERED: HYDROmorphone INJ 0.5 MG/0.5 ML SYR IV PRN (12:31)
[2020-03-25] MEDS ORDERED: SODIUM CHLORIDE 0.9% 1000ML 1,000 ML IV SCH (12:45)
[2020-03-25] MEDS ORDERED: ePHEDrine sulfate 50 MG/ML AMP IV PRN (14:04)
[2020-03-25] MEDS ORDERED: ATROPINE SULFATE 0.1 MG/ML 10ML SYR IV PRN (14:04)
--- NOTE | 2020-03-25 14:05 | Anesthesiology Progress Note ---
Date of Service March 25, 2020 Anesthesia Post Procedure Vital Signs Vital Signs: Temp Pulse Pulse Pulse Resp BP BP 03/25/20 13:45 84 20 93/58 L 03/25/20 13:35 85 17 97/59 L 03/25/20 13:25 37.2 C 81 20 92/60 L 03/25/20 13:15 83 16 97/68 L 03/25/20 13:05 84 19 98/53 L 03/25/20 12:55 83 14 93/63 L 03/25/20 12:45 83 20 100/59 L 03/25/20 12:35 88 12 104/64 03/25/20 12:27 37.1 C 90 18 103/66 03/25/20 07:42 37.0 C 96 H 03/24/20 23:22 36.6 C 95 H 18 03/24/20 22:11 37.5 C 98 H 14 03/24/20 21:09 85 18 113/80 03/24/20 19:59 03/24/20 19:30 91 H 18 03/24/20 17:43 03/24/20 17:42 86 17 03/24/20 15:50 36.8 C 78 20 175/114 H BP Pulse Ox 03/25/20 13:45 96 03/25/20 13:35 94 03/25/20 13:25 95 03/25/20 13:15 96 03/25/20 13:05 97 03/25/20 12:55 92 03/25/20 12:45 94 03/25/20 12:35 91 03/25/20 12:27 92 03/25/20 07:42 108/73 91 03/24/20 23:22 134/87 92 03/24/20 22:11 139/91 94 03/24/20 21:09 91 03/24/20 19:59 75 L 03/24/20 19:30 141/100 H 90 03/24/20 17:43 90 03/24/20 17:42 133/80 89 L 03/24/20 15:50 96 Pain Intensity Left Hip: Pain Intensity: 0 Transfer of Care Handoff Completed per policy Notes Mental Status: alert / awake / arousable and participated in evaluation Patient Amnestic to Procedure: Yes Nausea / Vomiting: adequately controlled Pain: adequately controlled Airway Patency, RR, SpO2: stable & adequate BP & HR: stable & adequate Hydration State: stable & adequate Anesthetic Complications: no major complications apparent and Pt Satisfied with anesthetic care
--- NOTE | 2020-03-25 14:25 | XRay Report ---
SINGLE VIEW PELVIS; SINGLE VIEW LEFT HIP CLINICAL HISTORY: Postoperative examination. FINDINGS: An AP portable view of the hips and pelvis with a crosstable lateral portable view of the l eft hip are compared to study dated 03/24/2020. A unipolar left hip arthroplasty is in near-anatomic alignment. No acute fracture is identified. There are expected postoperative changes overlying the le ft hip including skin clips, subcutaneous gas and soft tissue swelling. Mild to moderate degenerative joint space narrowing is seen in the right hip. Phleboliths are noted in the pelvis. Advanced lumbos acral spondylosis is partially visualized. IMPRESSION: Expected postoperative findings status post left hip arthroplasty. No acute fracture is s een. ACT 112: Negative or not required by law. Electronically signed by: José Miguel Altamirano M.D. 03/25/2020 2:24 PM
[2020-03-25] MEDS: ACETAMINOPHEN 500 MG TAB PO SCH ×2 (14:28→14:29)
[2020-03-25] MEDS: FERROUS GLUCONATE 324 MG TAB PO SCH (16:26)
--- NOTE | 2020-03-25 19:04 | CT Scan Report ---
CT ANGIOGRAM OF THE CHEST CLINICAL HISTORY: Hypoxia. COMPARISON STUDY: Chest x-ray dated 03/24/2020. TECHNIQUE: Following the IV administration of 119 cc of Optiray 320, CT angiogram of the chest was pe rformed from the upper abdomen to the thoracic inlet utilizing the pulmonary embolus protocol. Images are reviewed in the axial, sagittal, and coronal planes. 3-D MIPS images are created and assessed. I V contrast was administered without complication. A dose lowering technique was utilized adhering to the principles of ALARA. CT DOSE: 231.43 mGy.cm FINDINGS: Thyroid: Imaged portions of the thyroid gland are normal in size and attenuation. Thoracic aorta: There is mild atherosclerotic calcification of the thoracic aorta, which is normal in caliber and demonstrates standard 3-vessel arch anatomy. No dissection is seen. Pulmonary vasculature: The pulmonary trunk is normal in caliber. There are no filling defects identif ied in main, lobar, or segmental pulmonary branches to suggest pulmonary embolus. Heart: The heart is enlarged and without pericardial effusion. There are coronary artery calcificatio ns. Lungs and pleural spaces: There is intralobular septal thickening. There are small pleural effusions with bibasilar atelectasis. Patchy groundglass opacities are seen throughout both lungs. There is mil d diffuse peribronchial thickening. The trachea and central airways are clear. Mediastinum: There is no mediastinal lymphadenopathy. Micki: Clear. Axillae: There is no axillary lymphadenopathy. Upper abdomen: There is a small hiatal hernia. There is diverticulosis of the partially imaged left c olon. Skeletal structures: The skeletal structures are osteopenic. Degenerative change is seen throughout t he thoracic spine. No lytic or blastic bony lesions are seen. IMPRESSION: 1. There is no evidence of pulmonary embolus in the main, lobar, or segmental pulmonary arteries. 2. Cardiomegaly with evidence of congestive failure. 3. Patchy groundglass opacities are seen throughout both lungs and likely represent pulmonary edema. Correlate clinically for evidence of a superimposed infectious/inflammatory pneumonitis. 3. Small pleural effusions. 4. Additional findings as above. ACT 112: Negative or not required by law. Electronically signed by: José Miguel Altamirano M.D. 03/25/2020 7:03 PM
[2020-03-25] MEDS: ceFAZolin 1000MG 1,000 MG/7.5 ML SYR IV SCH (19:31)
[2020-03-25] MEDS: SENNA 8.6 MG TAB PO SCH (20:51)
[2020-03-25] MEDS: CeleBREX 200 MG CAP PO SCH (20:52)
[2020-03-25] MEDS: ESCITALOPRAM OXALATE 10 MG TAB PO SCH (20:52)
[2020-03-25] MEDS ORDERED: FUROSEMIDE 10 MG in SYRINGE 0 ML IV ONE (21:00)
[2020-03-25] MEDS ORDERED: DOCUSATE SODIUM 100 MG CAP PO SCH (21:00)
[2020-03-25] MEDS ORDERED: ASPIRIN 81 MG ECTAB PO SCH (21:00)
[2020-03-25] MEDS: ACETAMINOPHEN SUSP 1000 MG/31.2 ML UDP PO SCH (21:24)
--- NOTE | 2020-03-25 23:52 | Hospitalist Progress Note ---
Date of Service March 25, 2020 Assessment & Plan (1) Hip fracture, left: Patient 80-year-old female with a past medical history of glaucoma, anxiety/depression, allergic rhinitis who presents today for evaluation of hip pain status post mechanical fall. #Acute subcapital left hip fracture secondary to mechanical fall in the setting of a patient with poor balance s/p Bipolar Hip Prosthesis-Left PT/OT- WBAT appreciate input from ortho. (2) Hypoxia: Patient is mildy tachycardic and is having hypoxia. Will need to rule out pulmonary emboli. will order ct chest with contrast and monitor. (3) Glaucoma: stable. continue home meds (4) Depression: stable. continue escitalopram (5) Fall: await PT input/ (6) Poor balance: consulted PT/PT DVT PROPH: PLACED ON asa 81 MG po BID. Admission and Anticipated Discharge Date Admission Date: March 24, 2020 Subjective Patient does not feel well. Complaining of vague symptoms, but overall feels fatigued. Review of Systems Review of Systems: All systems reviewed & are unremarkable except as noted in HPI & below Physical Exam Physical Exam: General: In no acute distress HEENT: Normocephalic atraumatic Neck: Normal to visual inspection, trachea midline Cardiac: Regular rate and rhythm I did not appreciate significant murmurs rubs or gallops, normal S1, normal S2, negative pedal edema, negative calf tenderness Respiratory: Clear to auscultation bilaterally with symmetrical chest expansion no increased work of breathing I did not appreciate any significant wheezes, rales, rhonchi GI: Soft, nontender, nondistended, bowel sounds present in all 4 quadrants MSK: Moves all extremities, neurovascular sensation intact on the left side, endorses pain in her left quadriceps muscles Skin: Some bruising and ecchymosis around the injury site Neuro: Alert and oriented x4 Psych: Calm and cooperative Results & Data Results & Data ([facility]) Vital Signs (Past 12 Hours) Vital Signs Temp Pulse Pulse Resp BP Pulse Ox 03/25/20 23:36 37.2 C 85 18 79/51 L 93 03/25/20 19:30 37.1 C 105 H 18 111/64 96 03/25/20 17:09 91 H 16 112/73 92 03/25/20 16:10 91 H 16 110/71 91 03/25/20 15:19 98 H 18 101/65 94 03/25/20 14:44 37.2 C 89 16 92/59 L 4 L 03/25/20 14:00 37.1 C 105 H 20 111/64 96 03/25/20 13:45 84 20 93/58 L 96 03/25/20 13:35 85 17 97/59 L 94 03/25/20 13:25 37.2 C 81 20 92/60 L 95 03/25/20 13:15 83 16 97/68 L 96 03/25/20 13:05 84 19 98/53 L 97 03/25/20 12:55 83 14 93/63 L 92 03/25/20 12:45 83 20 100/59 L 94 03/25/20 12:35 88 12 104/64 91 03/25/20 12:27 37.1 C 90 18 103/66 92 PG Care Time/CCT Total # of Minutes Spent Total Time Spent with Patient: Total time spent is greater than 50% in coordination of care (as documented) at patient's floor/unit and/or counseling patient: Coding Level of Care Code 77961 Subseq Hosp Care Lvl 3 Diagnoses Hip fracture, left S72.002A Encounter type: initial encounter Fracture type: closed Hypoxia R09.02 Glaucoma H40.9 Depression F32.9 Fall W19.XXXA Encounter type: initial encounter Poor balance R26.89 Time Spent (min) 35 (1) Hip fracture, left Encounter type: initial encounter Fracture type: closed Qualified Code(s): S72.002A - Fracture of unspecified part of neck of left femur, initial encounter for closed fracture (2) Fall Encounter type: initial encounter Qualified Code(s): W19.XXXA - Unspecified fall, initial encounter
[2020-03-26] MEDS: AZELASTINE~ORDER AWAITING ACTION SCH ×4 (00:13→23:07)
[2020-03-26] MEDS ORDERED: SODIUM CHLORIDE 0.9% 1000ML 250 ML IV ONE (00:21)
[2020-03-26 01:07] LABS: Basophils % (auto) 0.4 %; Eosinophils % (auto) 3.3 %; Hematocrit (blood only) 34.9 % (37-47); Hemoglobin 11.5 g/dL (12.0-16.0); Immature Granulocytes % (auto) 0.1 %; Lymphocytes % (auto) 23.7 %; Mean Corpuscular Hemoglobin 33.2 pg (25-34); Mean Corpuscular Volume 100.9 fL (80-100); Mean Platelet Volume 10.5 fL (7.4-10.4); Monocytes % (auto) 11.4 %; Neutrophils % (auto) 61.1 %; Platelet Count 216 K/uL (130-400); RDW Coefficient of Variation 13.7 % (11.5-14.5); RDW Standard Deviation 50.1 fL (36.4-46.3); Red Blood Count 3.46 M/uL (4.2-5.4); White Blood Count 6.93 K/uL (4.8-10.8)
[2020-03-26 01:08] LABS: Basophils # (auto) 0.03 K/uL (0-0.2); Eosinophils # (auto) 0.23 K/uL (0-0.5); Immature Granulocytes # (auto) 0.01 K/uL (0.00-0.02); Lymphocytes # (auto) 1.64 K/uL (1.2-3.4); Monocytes # (auto) 0.79 K/uL (0.11-0.59); Neutrophils # (auto) 4.23 K/uL (1.4-6.5)
[2020-03-26] MEDS: ALBUMIN 25% 12.5 GM/50 ML VIAL IV SCH ×2 (01:47→02:30)
[2020-03-26] MEDS: ceFAZolin 1000MG 1,000 MG/7.5 ML SYR IV SCH (01:51)
[2020-03-26 06:17] LABS: Basophils # (auto) 0.03 K/uL (0-0.2); Basophils % (auto) 0.6 %; Eosinophils # (auto) 0.27 K/uL (0-0.5); Eosinophils % (auto) 5.2 %; Hematocrit (blood only) 32.1 % (37-47); Hemoglobin 10.6 g/dL (12.0-16.0); Immature Granulocytes # (auto) 0.01 K/uL (0.00-0.02); Immature Granulocytes % (auto) 0.2 %; Lymphocytes # (auto) 1.38 K/uL (1.2-3.4); Lymphocytes % (auto) 26.5 %; Mean Corpuscular Hemoglobin 33.4 pg (25-34); Mean Corpuscular Volume 101.3 fL (80-100); Mean Platelet Volume 10.6 fL (7.4-10.4); Monocytes # (auto) 0.53 K/uL (0.11-0.59); Monocytes % (auto) 10.2 %; Neutrophils # (auto) 2.98 K/uL (1.4-6.5); Neutrophils % (auto) 57.3 %; Platelet Count 179 K/uL (130-400); RDW Coefficient of Variation 13.7 % (11.5-14.5); RDW Standard Deviation 50.9 fL (36.4-46.3); Red Blood Count 3.17 M/uL (4.2-5.4)
[2020-03-26] MEDS: ACETAMINOPHEN SUSP 1000 MG/31.2 ML UDP PO SCH ×3 (06:21→23:06)
[2020-03-26 06:55] LABS: BUN Creatinine Ratio 18.3 (10-20); Calcium 7.8 mg/dl (8.5-10.1); Creatinine Clr Calc Pharmacy 59.6 ml/min; Est GFR (African American) 94.2; Est GFR (Non-African American) 81.3; Potassium 3.7 mmol/L (3.5-5.1)
[2020-03-26] MEDS ORDERED: ASPIRIN 81 MG CHEW PO SCH (09:00)
[2020-03-26] MEDS ORDERED: MULTIVITAMIN TAB PO SCH (09:00)
--- NOTE | 2020-03-26 09:08 | Orthopedic Progress Note ---
Date of Service March 26, 2020 Assessment & Plan (1) Hip fracture, left: s/p Bipolar Hip Prosthesis-Left PT/OT- WBAT DVT prophylaxis- ASA, TEDs, SCDs Discharge planning: patient feels as though she can return home with her as he is able to help and take care of her. From an orthopedic standpoint she may be d/c when able to complete PT. Admission and Anticipated Discharge Date Admission Date: March 24, 2020 Subjective POD #1. Patient resting comfortably in bed and eating breakfast. Feeling better today. Denies chest pain, SOB, dizziness, lightheadedness. Minimal pain Physical Exam Physical Exam: Toes mobile, NVI. Calves soft, non tender. Silverlon dressing in place left hip Results & Data ([facility]) Vital Signs (Past 12 Hours) Vital Signs Temp Pulse Pulse Pulse Resp BP BP 03/26/20 08:03 37.0 C 82 83/50 L 03/26/20 07:57 03/26/20 06:27 89 18 103/66 03/26/20 04:09 85 16 108/67 03/26/20 03:28 86 18 102/64 03/26/20 03:03 36.7 C 88 17 90/54 L 03/26/20 01:02 107/76 03/26/20 00:45 89/59 L 03/25/20 23:36 37.2 C 85 18 79/51 L Pulse Ox 03/26/20 08:03 93 03/26/20 07:57 97 03/26/20 06:27 93 03/26/20 04:09 92 03/26/20 03:28 91 03/26/20 03:03 93 03/26/20 01:02 03/26/20 00:45 03/25/20 23:36 93 (1) Hip fracture, left Encounter type: initial encounter Fracture type: closed Qualified Code(s): S72.002A - Fracture of unspecified part of neck of left femur, initial encounter for closed fracture
[2020-03-26] MEDS: DOCUSATE SODIUM SYRUP 100 MG/10 ML UDC PO SCH ×2 (09:28→19:54)
[2020-03-26] MEDS: FERROUS SULFATE 325 MG/7.4 ML UDP PO SCH ×2 (09:28→16:55)
[2020-03-26] MEDS: MULTI VIT W/MINERALS LIQUID 15 ML UDP PO SCH (09:29)
[2020-03-26] MEDS: POLYETHYLENE (MIRALAX) 17 GM PACK PO SCH ×2 (09:29→19:55)
[2020-03-26] MEDS: TIMOLOL MALEATE 0.5% OP SOLN 5 ML BTL OPR SCH ×2 (09:30→19:56)
[2020-03-26] MEDS: CeleBREX 200 MG CAP PO SCH ×2 (09:30→19:51)
[2020-03-26] MEDS: FERROUS GLUCONATE 324 MG TAB PO SCH (09:36)
[2020-03-26] MEDS ORDERED: ENOXAPARIN INJ 30 MG/0.3 ML SYR SQ ONE (12:15)
--- NOTE | 2020-03-26 13:04 | XCELERA ---
[id number] [id number]
[2020-03-26] MEDS: SENNA 8.6 MG TAB PO SCH (19:54)
[2020-03-26] MEDS: ESCITALOPRAM OXALATE 10 MG TAB PO SCH (19:55)
--- NOTE | 2020-03-26 22:09 | Hospitalist Progress Note ---
Date of Service March 26, 2020 Assessment & Plan (1) Hip fracture, left: Patient 80-year-old female with a past medical history of glaucoma, anxiety/depression, allergic rhinitis who presents today for evaluation of hip pain status post mechanical fall. #Acute subcapital left hip fracture secondary to mechanical fall in the setting of a patient with poor balance s/p Bipolar Hip Prosthesis-Left PT/OT- WBAT appreciate input from ortho. ortho has signed off. (2) Hypoxia: Patient is mildy tachycardic and is having hypoxia. CT scan shows no signs of P/E But showing signs of pulmonary edema. awaiting echocardiogram. remains on supplemental oxygen (3) Glaucoma: stable. continue home meds (4) Depression: stable. continue escitalopram (5) Fall: await PT input/ (6) Poor balance: consulted PT/PT DVT PROPH: placed on lovenlx, will switch on ASA 81 mg PO BID on discharge Admission and Anticipated Discharge Date Admission Date: March 24, 2020 Subjective 80 yo female reports feeling queasy today. She denies any diarrhea. Review of Systems Review of Systems: All systems reviewed & are unremarkable except as noted in HPI & below Physical Exam Physical Exam: General: In no acute distress HEENT: Normocephalic atraumatic Neck: Normal to visual inspection, trachea midline Cardiac: Regular rate and rhythm I did not appreciate significant murmurs rubs or gallops, normal S1, normal S2, negative pedal edema, negative calf tenderness Respiratory: Clear to auscultation bilaterally with symmetrical chest expansion no increased work of breathing I did not appreciate any significant wheezes, rales, rhonchi GI: Soft, nontender, nondistended, bowel sounds present in all 4 quadrants MSK: Moves all extremities, neurovascular sensation intact on the left side, endorses pain in her left quadriceps muscles Skin: Some bruising and ecchymosis around the injury site Neuro: Alert and oriented x4 Psych: Calm and cooperative Results & Data Results & Data ([facility]) Vital Signs (Past 12 Hours) Vital Signs Temp Pulse Pulse Resp BP Pulse Ox 03/26/20 20:10 37.2 C 94 H 18 128/76 94 03/26/20 16:00 36.6 C 78 18 113/75 96 PG Care Time/CCT Total # of Minutes Spent Total Time Spent with Patient: Total time spent is greater than 50% in coordination of care (as documented) at patient's floor/unit and/or counseling patient: Coding Level of Care Code 16542 Subseq Hosp Care Lvl 3 Diagnoses Hip fracture, left S72.002A Encounter type: initial encounter Fracture type: closed Hypoxia R09.02 Glaucoma H40.9 Depression F32.9 Fall W19.XXXA Encounter type: initial encounter Poor balance R26.89 (1) Hip fracture, left Encounter type: initial encounter Fracture type: closed Qualified Code(s): S72.002A - Fracture of unspecified part of neck of left femur, initial encounter for closed fracture (2) Fall Encounter type: initial encounter Qualified Code(s): W19.XXXA - Unspecified fall, initial encounter
[2020-03-27] MEDS: ACETAMINOPHEN SUSP 1000 MG/31.2 ML UDP PO SCH ×3 (04:43→21:22)
--- NOTE | 2020-03-27 06:59 | Orthopedic Progress Note ---
Date of Service March 27, 2020 Assessment & Plan (1) Hip fracture, left: POD#2 left hip bipolar hemiarthroplasty PT/OT- WBAT DVT prophylaxis- ASA, TEDs, SCDs Discharge planning: discharge home with home heatlh vs rehab when stable. PT recommending inpatient rehab. Will see how she does today with therapy. Stable for discharge from ortho standpoint. F/u with Dr. Lanza at [facility] in 12-14 days post op. She may call [phone] for an appointment Admission and Anticipated Discharge Date Admission Date: March 24, 2020 Subjective Patient is POD#2 left hip bipolar hemiarthroplasty. She denies complaints, pain controlled. Has not done much PT yet. Denies chest pain, sob, dizziness/light headedness, fever, chills. Review of Systems Review of Systems: All systems reviewed & are unremarkable except as noted in HPI & below Physical Exam Physical Exam: Patient sleeping upon my arrival, easily awoken. Silverlon dressing to left hip is c/d/i. Minimal discomfort with light log roll. No calf tenderness. Good dorsiflexion. Distally n/v status and sensation are intact. Results & Data ([facility]) Vital Signs (Past 12 Hours) Vital Signs Temp Pulse Pulse Resp BP Pulse Ox 03/27/20 06:09 97 03/27/20 06:06 96 03/27/20 03:00 96 03/26/20 23:40 37.6 C H 88 19 115/71 99 03/26/20 20:10 37.2 C 94 H 18 128/76 94 (1) Hip fracture, left Encounter type: initial encounter Fracture type: closed Qualified Code(s): S72.002A - Fracture of unspecified part of neck of left femur, initial encounter for closed fracture
[2020-03-27 07:59] LABS: Basophils # (auto) 0.03 K/uL (0-0.2); Basophils % (auto) 0.5 %; Eosinophils # (auto) 0.38 K/uL (0-0.5); Eosinophils % (auto) 5.8 %; Hematocrit (blood only) 32.8 % (37-47); Immature Granulocytes # (auto) 0.01 K/uL (0.00-0.02); Immature Granulocytes % (auto) 0.2 %; Lymphocytes # (auto) 1.53 K/uL (1.2-3.4); Lymphocytes % (auto) 23.4 %; Mean Corpuscular Hemoglobin 33.7 pg (25-34); Mean Corpuscular Hgb Conc 33.5 g/dL (32-36); Mean Corpuscular Volume 100.6 fL (80-100); Mean Platelet Volume 11.1 fL (7.4-10.4); Monocytes # (auto) 0.62 K/uL (0.11-0.59); Monocytes % (auto) 9.5 %; Neutrophils # (auto) 3.97 K/uL (1.4-6.5); Neutrophils % (auto) 60.6 %; Platelet Count 197 K/uL (130-400); RDW Coefficient of Variation 13.5 % (11.5-14.5); RDW Standard Deviation 49.5 fL (36.4-46.3); Red Blood Count 3.26 M/uL (4.2-5.4); White Blood Count 6.54 K/uL (4.8-10.8)
[2020-03-27 08:24] LABS: BUN Creatinine Ratio 17.7 (10-20); Calcium 8.8 mg/dl (8.5-10.1); Creatinine Clr Calc Pharmacy 90.7 ml/min; Est GFR (African American) 108.1; Est GFR (Non-African American) 93.3; Potassium 3.7 mmol/L (3.5-5.1)
[2020-03-27] MEDS: FERROUS SULFATE 325 MG/7.4 ML UDP PO SCH ×2 (10:17→16:43)
[2020-03-27] MEDS: MULTI VIT W/MINERALS LIQUID 15 ML UDP PO SCH (10:18)
[2020-03-27] MEDS: DOCUSATE SODIUM SYRUP 100 MG/10 ML UDC PO SCH ×2 (10:18→21:21)
[2020-03-27] MEDS: AZELASTINE~ORDER AWAITING ACTION SCH ×3 (10:18→23:27)
[2020-03-27] MEDS: CeleBREX 200 MG CAP PO SCH ×2 (10:19→21:19)
[2020-03-27] MEDS: ENOXAPARIN INJ 40 MG/0.4 ML SYR SQ SCH (10:19)
[2020-03-27] MEDS: POLYETHYLENE (MIRALAX) 17 GM PACK PO SCH ×2 (10:19→21:22)
[2020-03-27] MEDS: TIMOLOL MALEATE 0.5% OP SOLN 5 ML BTL OPR SCH ×2 (10:20→21:23)
[2020-03-27] MEDS ORDERED: FUROSEMIDE 20 MG in SYRINGE 0 ML IV STA (16:13)
[2020-03-27] MEDS: SENNA 8.6 MG TAB PO SCH (21:22)
[2020-03-27] MEDS: ESCITALOPRAM OXALATE 10 MG TAB PO SCH (21:24)
--- NOTE | 2020-03-27 22:57 | Hospitalist Progress Note ---
Date of Service March 27, 2020 Assessment & Plan (1) Hip fracture, left: Patient 80-year-old female with a past medical history of glaucoma, anxiety/depression, allergic rhinitis who presents today for evaluation of hip pain status post mechanical fall. #Acute subcapital left hip fracture secondary to mechanical fall in the setting of a patient with poor balance s/p Bipolar Hip Prosthesis-Left PT/OT- WBAT appreciate input from ortho. ortho has signed off. (2) Hypoxia: Patient is mildy tachycardic and is having hypoxia. CT scan shows no signs of P/E But showing signs of pulmonary edema. Echocardiogram showing segmental hypokinesis. will give intermittent diuretics and will consult cardio remains on supplemental oxygen Had discussion with patient and on phone regarding her presentation. (3) Glaucoma: stable. continue home meds (4) Depression: stable. continue escitalopram (5) Fall: await PT input/ (6) Poor balance: consulted PT/PT DVT PROPH: placed on lovenlx, will switch evelin ASA 81 mg PO BID on discharge Admission and Anticipated Discharge Date Admission Date: March 24, 2020 Subjective 80 yo female reports feeling better today. She has no new complaints. Still requires oxygen. Review of Systems Review of Systems: All systems reviewed & are unremarkable except as noted in HPI & below Physical Exam Physical Exam: General: In no acute distress HEENT: Normocephalic atraumatic Neck: Normal to visual inspection, trachea midline Cardiac: Regular rate and rhythm I did not appreciate significant murmurs rubs or gallops, normal S1, normal S2, negative pedal edema, negative calf tenderness Respiratory: Clear to auscultation bilaterally with symmetrical chest expansion no increased work of breathing I did not appreciate any significant wheezes, rales, rhonchi GI: Soft, nontender, nondistended, bowel sounds present in all 4 quadrants MSK: Moves all extremities, neurovascular sensation intact on the left side, endorses pain in her left quadriceps muscles Skin: Some bruising and ecchymosis around the injury site Neuro: Alert and oriented x4 Psych: Calm and cooperative Results & Data Results & Data ([facility]) Vital Signs (Past 12 Hours) Vital Signs Temp Pulse Resp BP Pulse Ox 03/27/20 16:12 36.4 C L 85 16 114/68 95 03/27/20 11:00 14 PG Care Time/CCT Total # of Minutes Spent Total Time Spent with Patient: Total time spent is greater than 50% in coordination of care (as documented) at patient's floor/unit and/or counseling patient: Coding Level of Care Code 99083 Subseq Hosp Care Lvl 3 Diagnoses Hip fracture, left S72.002A Encounter type: initial encounter Fracture type: closed Hypoxia R09.02 Glaucoma H40.9 Depression F32.9 Fall W19.XXXA Encounter type: initial encounter Poor balance R26.89 Time Spent (min) 35 (1) Hip fracture, left Encounter type: initial encounter Fracture type: closed Qualified Code(s): S72.002A - Fracture of unspecified part of neck of left femur, initial encounter for closed fracture (2) Fall Encounter type: initial encounter Qualified Code(s): W19.XXXA - Unspecified fall, initial encounter
[2020-03-28] MEDS: ACETAMINOPHEN SUSP 1000 MG/31.2 ML UDP PO SCH ×3 (06:02→23:01)
--- NOTE | 2020-03-28 07:06 | Orthopedic Progress Note ---
Date of Service March 28, 2020 Assessment & Plan (1) Hip fracture, left: POD#3 left hip bipolar hemiarthroplasty PT/OT- WBAT DVT prophylaxis- ASA, TEDs, SCDs Discharge planning: discharge home with home health vs rehab when stable. PT recommending inpatient rehab. She would like to go home with home health. Stable for discharge from ortho standpoint. Ortho will sign off. F/u with Dr. Lanza at [facility] in 12-14 days post op. She may call [phone] for an appointment Admission and Anticipated Discharge Date Admission Date: March 24, 2020 Subjective Patient is POD#3 left hip bipolar hemiarthroplasty. She denies complaints, minimal pain. Denies chest pain, sob, dizziness/light headedness, fever, chills. Physical Exam Physical Exam: Patient sitting up in bed upon arrival. Silverlon dressing to left hip is c/d/i. No calf tenderness. Good dorsiflexion. Distally n/v status and sensation are intact. Results & Data ([facility]) Vital Signs (Past 12 Hours) Vital Signs Temp Pulse Resp BP Pulse Ox Pulse Ox 03/27/20 23:29 95 03/27/20 23:15 36.8 C 95 H 16 109/70 92 (1) Hip fracture, left Encounter type: initial encounter Fracture type: closed Qualified Code(s): S72.002A - Fracture of unspecified part of neck of left femur, initial encounter for closed fracture
[2020-03-28] MEDS: FERROUS SULFATE 325 MG/7.4 ML UDP PO SCH ×2 (07:22→17:58)
[2020-03-28] MEDS: AZELASTINE~ORDER AWAITING ACTION SCH ×3 (07:22→23:01)
[2020-03-28] MEDS: DOCUSATE SODIUM SYRUP 100 MG/10 ML UDC PO SCH ×2 (08:02→19:39)
[2020-03-28] MEDS: MULTI VIT W/MINERALS LIQUID 15 ML UDP PO SCH (08:02)
[2020-03-28] MEDS: ENOXAPARIN INJ 40 MG/0.4 ML SYR SQ SCH (08:03)
[2020-03-28] MEDS: CeleBREX 200 MG CAP PO SCH ×2 (08:03→19:39)
[2020-03-28] MEDS: TIMOLOL MALEATE 0.5% OP SOLN 5 ML BTL OPR SCH ×2 (08:05→19:38)
[2020-03-28] MEDS: POLYETHYLENE (MIRALAX) 17 GM PACK PO SCH ×2 (08:05→19:39)
[2020-03-28 12:38] LABS: Basophils # (auto) 0.03 K/uL (0-0.2); Basophils % (auto) 0.4 %; Eosinophils # (auto) 0.51 K/uL (0-0.5); Eosinophils % (auto) 6.4 %; Hematocrit (blood only) 32.4 % (37-47); Hemoglobin 10.9 g/dL (12.0-16.0); Immature Granulocytes # (auto) 0.02 K/uL (0.00-0.02); Immature Granulocytes % (auto) 0.3 %; Lymphocytes # (auto) 1.96 K/uL (1.2-3.4); Lymphocytes % (auto) 24.7 %; Mean Corpuscular Hemoglobin 33.5 pg (25-34); Mean Corpuscular Hgb Conc 33.6 g/dL (32-36); Mean Corpuscular Volume 99.7 fL (80-100); Mean Platelet Volume 11.1 fL (7.4-10.4); Monocytes # (auto) 0.93 K/uL (0.11-0.59); Monocytes % (auto) 11.7 %; Neutrophils # (auto) 4.48 K/uL (1.4-6.5); Neutrophils % (auto) 56.5 %; Platelet Count 246 K/uL (130-400); RDW Coefficient of Variation 13.4 % (11.5-14.5); RDW Standard Deviation 48.8 fL (36.4-46.3); Red Blood Count 3.25 M/uL (4.2-5.4); White Blood Count 7.93 K/uL (4.8-10.8)
[2020-03-28 12:56] LABS: BUN Creatinine Ratio 21.1 (10-20); Calcium 8.6 mg/dl (8.5-10.1); Creatinine Clr Calc Pharmacy 85.1 ml/min; Est GFR (African American) 105.9; Est GFR (Non-African American) 91.4; Potassium 3.7 mmol/L (3.5-5.1)
--- NOTE | 2020-03-28 14:41 | Cardiology Consultation ---
Date of Consultation March 28, 2020 Assessment & Plan (1) NSTEMI (non-ST elevated myocardial infarction): She had a non-ST segment elevation myocardial infarction, based on enzymes, echocardiographic findings and electrocardiographic changes. I suspect it occurred around the time of presentation although it could have occurred a day or so later as well. The differential includes Takatsubo cardiomyopathy from the stress of the fall, or coronary disease with probable LAD stenosis. Th e descending pattern is suggestive of demand ischemia or Takatsubo rather than an occluded vessel however the first set of enzymes was not done until several days after presentation so it is possible an acute myocardial infarction was missed. Since she is completely asymptomatic we could consider conservative treatment, but she is very active and I think it is worth excluding coronary artery disease. I do not think we should go immediately to catheterization although that could be done, but we are now 4 days after the event. I think a stress test would be reasonable. She is very anxious to go home but it should probably be a nuclear stress test due to the wall motion abnormalities and I doubt we can do that today. (2) Hypoxia: She had hypoxia on presentation which quickly cleared, that would be consistent with an acute ischemic event with rapid resolution. At this point that does not seem to be an issue. (3) Fall: She feels that she slipped on the snow and fell, it certainly does appear to be that way as opposed to an arrhythmia which caused her to fall. (4) Cardiomyopathy: She has a mild cardiomyopathy which could be stunning from an ischemic event prior to her presentation, we do not have prior echocardiograms for comparison. Depending on the results of her stress test we should probably repeat the echocardiogram at some point in the future. History of Present Illness Reason for Consultation: Abnormal cardiac enzymes, low normal LV function Attending Physician: Rod Poon History of Present Illness This is an 80-year-old woman admitted for treatment of a left hip fracture due to a mechanical fall. Evidently she has a history of poor balance and this is felt to be a mechanical fall. On discussing it with her it does sound like a mechanical fall, she was out taking a picture of the snow to send to somebody in [place] and she was backing up down her driveway to get a picture of the house when she slipped and fell. She had no lightheadedness or dizziness, she had no chest discomfort but was in a lot of pain from her hip when she fell. She does walk regularly on a treadmill including the day before this fall, she can walk about 15 minutes on the treadmill and then she has a little bit of shortness of breath sometimes and stops for it to resolve and then starts again. That has not changed recently, neither has her exercise ability. She has had no exertional chest discomfort with that activity and no chest discomfort at other times. She does not have any known heart disease other than years ago she may have been told she had something wrong with her mitral valve. Evaluation here included cardiac enzymes which were slightly elevated, Her first troponin was March 27, 2020 at 1500 and that was 0.551, the next 1 6 hours later was 0.495 and the third 6 hours after that was 0.387. Her proBNP was slightly elevated at 4750. Her echocardiogram done on March 26, 2020 showed low normal left ventricular function (ejection fraction 50 to 55%) with mild hypokinesis of the mid to distal anterior wall. Right ventricular systolic pressure was slightly elevated at 40 to 50 mmHg however the right ventricle systolic function and size was normal. Her electrocardiogram done on March 24, 2020 showed sinus rhythm with possible left atrial enlargement but otherwise normal. I had an electrocardiogram done today and it is quite different, it shows anterior T wave inversion with inferior ST-T abnormalities. Allergies Allergy/AdvReac Type Severity Reaction Status Date / Time No Known Allergies Allergy Verified 05/20/02 19:40 Home Medications Medication Instructions Recorded Confirmed Type azelastine 137 mcg (0.1 %) nasal 1 spray INTRANASAL DAILY #90 ml 12/28/19 03/24/20 Rx spray aerosol escitalopram oxalate 10 mg PO HS 03/24/20 03/24/20 History timolol maleate 1 drp OPR BID 03/24/20 03/24/20 History Patient History Social History Smoking Status: Never smoker Hx Alcohol Use: Yes Alcohol type: wine Hx Substance Use: No Preferred Language: Bahraini Communication Ability: Effective Marketing Project Coordinator Required: No Beliefs That Will Affect Care: None marital status: Current Living Situation: Spouse Current Living Situation Comment: [facility] Feels Safe at Home: Yes Assistive Devices: Walker Review of Systems Review of Systems: All systems reviewed & are unremarkable except as noted in HPI & below Physical Exam Physical Exam: Constitutional: Alert, cooperative and in no distress. HEENT: Unremarkable Neck: No jugular venous distention, carotid pulses are normal and equal bilaterally without bruits. Pulmonary: Clear to auscultation bilaterally. Cardiac: Regular rhythm with no murmur, gallop or rub. Abdomen: Soft, nontender with normal bowel sounds. Extremities: No edema. Distal pulses intact. Neurologic: No focal findings. Gait was not tested. Skin: No rash, ecchymoses or petechiae. Results & Data ([facility]) Vital Signs (Past 12 Hours) Vital Signs Temp Pulse Resp BP Pulse Ox 03/28/20 08:17 37.5 C 88 18 128/79 95 Diagnostic Findings Cardiac Enzymes 03/27/20 03/27/20 03/28/20 Range/Units 15:04 20:50 02:31 Troponin I 0.551 H* 0.495 H* 0.387 H* (0-0.045) ng/ml CBC 03/28/20 Range/Units 12:21 WBC 7.93 (4.8-10.8) K/uL RBC 3.25 L (4.2-5.4) M/uL Hgb 10.9 L (12.0-16.0) g/dL Hct 32.4 L (37-47) % Plt Count 246 (130-400) K/uL Neut # (Auto) 4.48 (1.4-6.5) K/uL Lymph # (Auto) 1.96 (1.2-3.4) K/uL C[place]shaw # (Auto) 0.93 H (0.11-0.59) K/uL Eos # (Auto) 0.51 H (0-0.5) K/uL Baso # (Auto) 0.03 (0-0.2) K/uL Comprehensive Metabolic Panel 03/28/20 Range/Units 12:21 Sodium 134 L (136-145) mmol/L Potassium 3.7 (3.5-5.1) mmol/L Chloride 100 (98-107) mmol/L Carbon Dioxide 27 (21-32) mmol/L BUN 10 (7-18) mg/dl Creatinine 0.49 L (0.6-1.2) mg/dl Glucose 89 (70-99) mg/dl Calcium 8.6 (8.5-10.1) mg/dl Intake and Output 03/27/20 03/28/20 03/28/20 22:59 06:59 14:59 Intake Total 400 / 1280 400 / 1280 660 / 660 Output Total 145 / 5 150 / 2025 Balance -1050 / -745 250 / -745 660 / 660 Intake: Oral 400 / 1280 400 / 1280 660 / 660 Output: Urine 1450 / 1600 150 / 1600 Other: Other Intake Source sips # Unmeasured Voids 1 1 PG Care Time/CCT Total # of Minutes Spent Total Time Spent with Patient: Total time spent is greater than 50% in coordination of care (as documented) at patient's floor/unit and/or counseling patient: Coding Level of Care Code 11380 Inpt Consult Level 5 Diagnoses NSTEMI (non-ST elevated myocardial infarction) I21.4 Hypoxia R09.02 Fall W19.XXXA Encounter type: initial encounter Cardiomyopathy I42.9 (1) Fall Encounter type: initial encounter Qualified Code(s): W19.XXXA - Unspecified fall, initial encounter
[2020-03-28] MEDS: FUROSEMIDE 40 MG in SYRINGE 0 ML IV ONE ×2 (16:23→16:43)
--- NOTE | 2020-03-28 16:48 | Electrocardiogram Report ---
Test Reason : Blood Pressure : / mmHG Vent. Rate : 097 BPM Atrial Rate : 097 BPM P-R Int : 152 ms QRS Dur : 084 ms QT Int : 376 ms P-R-T Axes : 060 030 158 degrees QTc Int : 477 ms Normal sinus rhythm T wave abnormality, consider anterolateral ischemia Prolonged QT Abnormal ECG When compared with ECG of 24-MAR-2020 16:57, Criteria for Septal infarct are no longer Present T wave inversion now evident in Anterolateral leads Confirmed by Steven Abrams ([id number]) on 03/28/2020 4:47:44 PM Referred By: REFERRED SELF Confirmed By:Steven Abrams
[2020-03-28] MEDS: ESCITALOPRAM OXALATE 10 MG TAB PO SCH (19:39)
[2020-03-28] MEDS: SENNA 8.6 MG TAB PO SCH (19:39)
--- NOTE | 2020-03-28 23:05 | Hospitalist Progress Note ---
Date of Service March 28, 2020 Assessment & Plan (1) Hip fracture, left: Patient 80-year-old female with a past medical history of glaucoma, anxiety/depression, allergic rhinitis who presents today for evaluation of hip pain status post mechanical fall. #Acute subcapital left hip fracture secondary to mechanical fall in the setting of a patient with poor balance s/p Bipolar Hip Prosthesis-Left PT/OT- WBAT appreciate input from ortho. ortho has signed off. (2) Hypoxia: Patient is mildy tachycardic and is having hypoxia. Likely secondary to pulmonary edema from possible.Takotsubo cardiomyopathy CT scan shows no signs of P/E Echocardiogram showing segmental hypokinesis. responded to intermittent lasix. Titrated off oxygen on 03/28 Had discussion with patient and on phone regarding her presentation on 03/27, agreeeable to consult with cardiology.. (3) Glaucoma: stable. continue home meds (4) Depression: stable. continue escitalopram (5) Fall: await PT input/ (6) Poor balance: consulted PT/PT DVT PROPH: placed on lovenlx, will switch evelin ASA 81 mg PO BID on discharge (7) NSTEMI (non-ST elevated myocardial infarction): unsure if caused by CAD or Takotsubo cardiomyopathy. Now that this event is at least 5 days old, ok for stress test in AM. Admission and Anticipated Discharge Date Admission Date: March 24, 2020 Subjective Patient reports feeling better. She is off oxygen and wants to be discharged, but understands she has a stress test tomorrow. Review of Systems Review of Systems: All systems reviewed & are unremarkable except as noted in HPI & below Physical Exam Physical Exam: General: In no acute distress HEENT: Normocephalic atraumatic Neck: Normal to visual inspection, trachea midline Cardiac: Regular rate and rhythm I did not appreciate significant murmurs rubs or gallops, normal S1, normal S2, negative pedal edema, negative calf tenderness Respiratory: Clear to auscultation bilaterally with symmetrical chest expansion GI: Soft, nontender, nondistended, bowel sounds present in all 4 quadrants MSK: Moves all extremities, Skin: Some bruising and ecchymosis around the injury site Neuro: Alert and oriented x4 Psych: Calm and cooperative Results & Data Results & Data ([facility]) Vital Signs (Past 12 Hours) Vital Signs Temp Pulse Resp BP Pulse Ox 03/28/20 16:54 37.2 C 03/28/20 15:55 37.6 C H 90 18 132/78 95 PG Care Time/CCT Total # of Minutes Spent Total Time Spent with Patient: Total time spent is greater than 50% in coordination of care (as documented) at patient's floor/unit and/or counseling patient: Coding Level of Care Code 39744 Subseq Hosp Care Lvl 3 Diagnoses Hip fracture, left S72.002A Encounter type: initial encounter Fracture type: closed Hypoxia R09.02 Glaucoma H40.9 Depression F32.9 Fall W19.XXXA Encounter type: initial encounter Poor balance R26.89 NSTEMI (non-ST elevated myocardial infarction) I21.4 Time Spent (min) 35 (1) Hip fracture, left Encounter type: initial encounter Fracture type: closed Qualified Code(s): S72.002A - Fracture of unspecified part of neck of left femur, initial encounter for closed fracture (2) Fall Encounter type: initial encounter Qualified Code(s): W19.XXXA - Unspecified fall, initial encounter
[2020-03-29] MEDS: ACETAMINOPHEN SUSP 1000 MG/31.2 ML UDP PO SCH ×2 (05:01→13:14)
[2020-03-29] MEDS: DOCUSATE SODIUM SYRUP 100 MG/10 ML UDC PO SCH (07:07)
[2020-03-29] MEDS: CeleBREX 200 MG CAP PO SCH (07:07)
[2020-03-29] MEDS: POLYETHYLENE (MIRALAX) 17 GM PACK PO SCH (07:07)
[2020-03-29] MEDS: AZELASTINE~ORDER AWAITING ACTION SCH ×2 (07:07→15:53)
[2020-03-29] MEDS: FERROUS SULFATE 325 MG/7.4 ML UDP PO SCH (07:07)
[2020-03-29] MEDS: MULTI VIT W/MINERALS LIQUID 15 ML UDP PO SCH (07:07)
[2020-03-29] MEDS ORDERED: REGADENOSON 0.4 MG/5 ML SYR IV ONE (08:15)
[2020-03-29] MEDS: TIMOLOL MALEATE 0.5% OP SOLN 5 ML BTL OPR SCH (10:52)
[2020-03-29] MEDS: ENOXAPARIN INJ 40 MG/0.4 ML SYR SQ SCH (10:54)
--- NOTE | 2020-03-29 15:53 | Cardiology Progress Note ---
Date of Service March 29, 2020 Assessment & Plan (1) NSTEMI (non-ST elevated myocardial infarction): Patient appears to have had a recent moderate sized anteroapical infarct with evidence of viability on nuclear study suggesting remaining myocardium at risk. Timing of infarct is unclear, since her ECG was normal on admission 5 days ago, pulmonary edema was not noted on initial chest x-ray but was noted on a CT scan 4 days ago, cardiac enzymes were elevated 3 days ago but showed a declining pattern. She has had hypoxia since admission, suggesting the event could have been prehospitalization. However, her initial normal ECG raises the possibility she had an intraoperative infarct. Fortunately, she has remained completely asymptomatic from a cardiac standpoint. Given the likelihood this is an acute event, recommended that she proceed to cardiac catheterization. However, she was reluctant to proceed immediately and was anxious to return home. Did explain that there was a risk of progressive ischemia/post infarct complications and that she would most benefit from early invasive evaluation. She was still like to return home, but she agreed to call in tomorrow with a time for cardiac catheterization, perhaps next week. Recommend continuing aspirin, adding a low-dose beta-terrence to help prevent tachycardia, and prescribing sublingual nitroglycerin to be taken on a as needed basis. She likely also would warrant a second antiplatelet agent (such as clopidogrel), but will hold on this given her recent femoral fracture. Will possibly initiate clopidogrel several days prior to any catheterization, given the reasonable likelihood she would undergo revascularization. (2) Hip fracture, left: Admission and Anticipated Discharge Date Admission Date: March 24, 2020 Subjective Patient had uneventful night and was very much anxious to go home. She had a nuclear stress study which showed a moderate sized area of mid to distal anterior nontransmural infarct with significant ischemia in the same distribution. Systolic function was normal (EF 57%) on the nuclear study. Physical Exam Physical Exam: No distress. Normotensive. Pulse 85-104 bpm range. Skin: no ecchymoses or generalized lesions. HEENT: unremarkable. Neck: no JVD or carotid bruits. Lungs: clear. Cardiac: regular rhythm, no murmur or gallop. Abdomen: benign. Extremities: no edema, pulses intact. Neurologic: normal affect, nonfocal. Results & Data ([facility]) Vital Signs (Past 12 Hours) Vital Signs Temp Pulse Resp BP BP Pulse Ox 03/29/20 14:50 98.4 F 103 H 14 117/76 132/78 95 03/29/20 10:47 98.4 F 103 H 14 117/76 95 Diagnostic Findings As noted, nuclear study showed a nontransmural moderate sized anteroapical infa rct with ischemia in the same location. Calculated EF 57%. PG Care Time/CCT Total # of Minutes Spent Total Time Spent with Patient: Total time spent is greater than 50% in coordination of care (as documented) at patient's floor/unit and/or counseling patient: Coding Level of Care Code 36937 Subseq Hosp Care Lvl 3 Diagnoses NSTEMI (non-ST elevated myocardial infarction) I21.4 Hip fracture, left S72.002A Encounter type: initial encounter Fracture type: closed (1) Hip fracture, left Encounter type: initial encounter Fracture type: closed Qualified Code(s): S72.002A - Fracture of unspecified part of neck of left femur, initial encounter for closed fracture
--- NOTE | 2020-03-29 16:33 | Discharge Summary ---
Date of Service March 29, 2020 Principal Diagnosis Hip fracture NSTEMI Discharge Exam Constitutional WD/WN, vitals as above Eyes EOM intact bilaterally; no conjunctival abnormality ENMT external ear and nose normal, oropharynx normal Neck trachea midline, no thyromegaly normal visual inspection Respiratory normal respiratory effort, lungs clear to auscultation no respiratory distress Cardiovascular RRR, no murmur, no edema Gastrointestinal (Abdomen) Inspection/Auscultation: abdomen normal to inspection; abdomen not distended Musculoskeletal no cyanosis or clubbing, extremities motor strength 5/5 Skin no rashes, warm and dry Neurologic moves all extremities and awake Psychiatric Orientation: alert, oriented to person and cooperative Discharge Data Allergies Allergy/AdvReac Type Severity Reaction Status Date / Time No Known Allergies Allergy Verified 05/20/02 19:40 Consultations 03/24/20 17:44 ED Decision to Admit Stat 03/24/20 19:11 Consult Case Management - Discharge Planning Routine 03/24/20 22:00 Consult Orthopedic Surgery Routine 03/26/20 08:00 Consult Case Management - Discharge Planning Routine 03/27/20 16:14 Consult Cardiology Routine Procedures Performed Operation Date: 03/25/20 09:00 Actual Procedures p Bipolar Hip Prosthesis-Left(Left) - Scottie Rivero MD Ordered Studies 03/24/20 15:51 CT cervical spine wo con Stat CT head/brain wo con Stat 03/25/20 17:40 CT angio chest PE protocol Urgent Hospital Course (1) Hip fracture, left: Patient 80-year-old female with a past medical history of glaucoma, anxiety/depression, allergic rhinitis who presents today for evaluation of hip pain status post mechanical fall. #Acute subcapital left hip fracture secondary to mechanical fall in the setting of a patient with poor balance s/p Bipolar Hip Prosthesis-Left PT/OT- WBAT appreciate input from ortho. Ortho has signed off. Follow up with Dr. Lanza in 10 days (around April 08). ASA 81 mg PO BID. (2) NSTEMI (non-ST elevated myocardial infarction): Unsure if caused by CAD or Takotsubo cardiomyopathy. EKGs showed acute change. Troponin peaked at 0.551, then downtrended. - Stress test on 03/29 was positive for ischemia with a small wall motion deficit with exertion. The patient was advised to remain in the hospital for a catheterization tomorrow, but she declined. The risk was discussed with her, but she was adamant that she could not spend another night in the hospital. - Discharged with recs from cardiology for ASA (BID for DVT ppx) and beta- terrence. She was instructed multiple times to call the cardiology office [facility] for follow up and catheterization. She was agreeable, but also mentioned wanted to ask friends/family about other cardiologists. I did tell her this was entirely her choice, but that she should not delay seeing a fairing worker. (3) Hypoxia: Likely secondary to acute pulmonary edema from Takotsubo cardiomyopathy vs. NSTEMI. - CT scan shows no signs of P/E - Echocardiogram showing segmental hypokinesis. - Responded to intermittent Lasix. - Titrated off oxygen on 03/28. (4) Glaucoma: stable. continue home meds (5) Depression: stable. continue escitalopram (6) Fall: await PT input/ (7) Poor balance: Consulted PT/OT -> Recommended home with home health. - Arrangements made. Total Time Total Time Spent Total Time Spent (In Minutes): 35 Discharge Plan Discharge Items Patient Disposition: Home - Home Health Services Reason For Visit: HIP FX Discharge Diagnosis: Hip fracture; mild heart stress Activity: Resume your previous activity Non-emergency contact: Primary Care Provider and Surgeon Call non-emergency contact if: your symptoms worsen Follow-up/Referrals: Amalia Todd MD [Primary Care Provider] - 04/04/20 10:20 am Jose C Padilla MD [Physician] - (Please contact Dr. Padilla's office as soon as possible to arrange a catheterization.) Dick Lanza DO [Physician] - 04/06/20 9:40 am (Please follow up in 10 days ) Diet: Regular Addtl Attending Provider Instructions: Please follow-up with Dr. Lanza at [facility] in 12-14 days post-op. Call [phone] for an appointment. Please take a baby aspirin twice a day until seen by Dr. Lanza in clinic. You also had a stress test done today which was positive. There is an area of of your heart that seems to not squeeze as well when it is under stress. This would indicate that the blood vessels have some plaque that may be slowing blood flow. We offered and encouraged you to get a catheterization in the hospital, but you did not want to stay in the hospital. Please call Dr. Padilla's office as soon as you can to arrange a follow-up and possible catheterization to make sure your heart is doing well. Please return to the hospital with any chest pain, shortness of breath, lightheadedness, dizziness, palpitations, or other concerning symptoms. Pending Studies at Discharge: No Stand-Alone Forms: [facility], Smoking Cessation Medications and DC Order Prescriptions: New aspirin 81 mg Tablet,Chewable 81 mg PO BID Qty: 20 RF: 0 metoprolol succinate 25 mg tablet extended release 24 hr 25 mg PO DAILY Qty: 30 RF: 0 Continued azelastine 137 mcg (0.1 %) aerosol,spray 1 spray intranasal DAILY Qty: 90 RF: 0 timolol maleate 0.5 % drops 1 drp OPR BID RF: 0 escitalopram oxalate 10 mg tablet 10 mg PO HS RF: 0 Discharge Orders: Discharge Order (Routine); Ordered 03/29/20 Ordered By: Ruddy Carlson Admission Data Admit Date/Time: 03/24/20 19:07 Attending Provider: Ruddy Carlson Admit Provider: Pola Kelley I. Primary Care Provider: Amalia Todd Other Providers: [facility] ; Scottie Rivero Charles C. ; Ruddy Carlson Other Interventions: Discharge Summary Assessment (RN) Last Done: 03/29/20 14:50 Coding Level of Care Code D/C Day Management >30 mins Diagnoses Hip fracture, left S72.002A Encounter type: initial encounter Fracture type: closed NSTEMI (non-ST elevated myocardial infarction) I21.4 Hypoxia R09.02 Glaucoma H40.9 Depression F32.9 Fall W19.XXXA Encounter type: initial encounter Poor balance R26.89
--- NOTE | 2020-03-29 17:54 | Myocardial Perfusion Study ---
Date of Service March 29, 2020 Myocardial Perfusion Study k Myocardial Perfusion Study Report [place] Act 112: Negative ONE DAY NUCLEAR MEDICINE LEXISCAN TECHNETIUM 99M MYOCARDIAL PERFUSION SCAN Indication: NSTEMI Baseline ECG: Sinus rhythm with nonspecific anterior T wave abnormality (minor T wave inversions). Stress ECG: No Lexiscan induced ST changes. HR karina from 97 to 122 representing 90% MPHR. BP 138/88 mm Hg. Technique: For the stress portion of the study 32.1 mCi of Technetium 99m Cardiolite IV was injected at 09:55 on 03/29/2020. 40 minutes following the injection, imaging of the heart was performed in multiple projections. For the rest portion of the study, 9.8 mCi of Technetium 99m Cardiolite was injected IV at 07:45. One hour following the injection, imaging of the hear was performed in the same projections. Findings: Rotating raw images were reviewed in detail. Potential sources of attenuation include minimal breast attenuation impacting the superior portion of the heart. No significant extracardiac pathologic uptake. Short axis, vertical long axis and horizontal long axis images were reviewed in detail. No visual transient ischemic dilatation. A moderate sized partially reversible defect involving the mid to distal anterior wall but sparing the apex was felt to be consistent with an anterior wall nontransmural infarct with significant anterior wall myocardial ischemia. Normal LV size. EDV 48 ml. ESV 21 ml. Calculated EF 51%. Anteroseptal/anterior wall hypokinesis, no other regional wall motion abnormalities. SUMMARY: 1. Abnormal myocardial perfusion study consistent with moderate size nontransmural anterior infarct with significant anterior wall myocardial ischemia. 2. Normal LV size with low normal function. LVEF 51% with anteroseptal/anterior wall hypokinesis. . 3. Negative lexiscan stress ECG at 90% MPHR. [facility] Myocardial perfusion code Indication for Procedure (1) NSTEMI (non-ST elevated myocardial infarction): Procedure Code Procedure 1: Myocardial Perfusion Codes: 20604 Cardiovascular Stress Test, multiple Procedure 2: Myocardial Perfusion Codes: 80291 Cardiovascular Stress Test, supervision only Procedure 3: Myocardial Perfusion Codes: 01195 Cardiovascular Stress Test, interpretation and report
== END 2020-03-29 16:22 | disposition home health service (06) | DRG 521 ==
LOC: ED 15:38 → SUATTDRO 19:07 → 3N 19:07